=== PATIENT | female | born 1980 | race Caucasian/White ===

== ENCOUNTER 2016-12-20 19:47 | Emergency (ER) | payer MEDICAID ==
[~2016-12-20] VITALS: Ht 160 cm; Wt 54.4 kg
[~2016-12-20 19:47] MED LIST: BENADRYL50 MG PO; FERROUS SULFAT325 M4 PO
[2016-12-20 19:49] VITALS: BP 122/86
--- NOTE | 2016-12-20 22:26 | NUR ---
PATIENT TO BED 7.
--- NOTE | 2016-12-20 22:40 | NUR ---
36Y/F PATIENT PRESENTS TO ER WITH C/O HEADACHE [id number]. PT STATES SHE WOKE UP AT 1700 TODAY WITH CONFUSION WITH EPISODE OF FORGETFULLNESS. TOOK TYLENOL AT 1300. NO MED HX. DENIES N/V/D; SKIN IS PINK/WARM/DRY; AAOX4 WITH EVEN AND STEADY GAIT AT THIS TIME; LUNGS CLEAR BL; HR EVEN AND REGULAR; PT DENIES ANY FEVER, CP, SOB, OR COUGH AT THIS TIME;C/O HEADACHE, PATIENT STATES PAIN OF 8/10 AT THIS TIME; VSS; PATIENT POSITIONED FOR COMFORT; HOB ELEVATED; BEDRAILS UP X2; BED DOWN. ER MD MADE AWARE OF PT STATUS.
--- NOTE | 2016-12-20 23:28 | NUR ---
Patient being evaluated by physician at bedside.
[2016-12-20] MEDS ORDERED: NACL 0.9% 1,000 ML IV ONE (23:34)
[2016-12-20] MEDS ORDERED: diphenhydrAMINE 50 MG/ML VIAL IVP ONE (23:35)
[2016-12-20] MEDS ORDERED: METOCLOPRAMIDE 10 MG/2 ML INJ VIAL IVP ONE (23:35)
[2016-12-21 00:58] VITALS: BP 115/80
--- NOTE | 2016-12-21 00:58 | NUR ---
Patient discharged with v/s stable. Written and verbal after care instructions given and explained. Patient alert, oriented and verbalized understanding of instructions. Ambulatory with steady gait*. All questions addressed prior to discharge. ID band removed. Patient advised to follow up with PMD. Rx of NORCO given. Patient educated on indication of medication including possible reaction and side effects. Opportunity to ask questions provided and answered.
[2017-03-19] MEDS ORDERED: ATORVASTATIN CA20 MG PO (12:43)
[2017-03-19] MEDS ORDERED: PHARMASSURE VI500 MG PO (12:43)
[2017-03-19] MEDS ORDERED: COLACE100 M1 PO (12:43)
[2017-03-19] MEDS ORDERED: FERROUS GLUCON324 M1 PO (12:43)
[2017-03-19] MEDS ORDERED: NORCO 325 MG-51 TAB PO (12:45)
[2017-03-19] MEDS ORDERED: MOTRIN600 MG PO (13:04)
[2017-04-20] MEDS ORDERED: COLACE100 M1 PO (15:40)
[2017-04-20] MEDS ORDERED: NORCO 325 MG-51 TAB PO (15:40)
[2017-04-20] MEDS ORDERED: FERROUS SULFAT325 MG PO (15:41)
[2017-04-30] MEDS ORDERED: NORCO 325 MG-51 TAB PO (14:42)
== END 2016-12-21 00:58 | disposition home or self-care (01) ==
LOC: MED 19:51
DX: R51 Headache (principal); Z88.6 Allergy status to analgesic agent
CPT/HCPCS: 70450; 81002; 81025; 96361; 96374; 96375; 99284; J1200; J2765; J7030

== ENCOUNTER 2017-02-14 13:06 | Emergency (ER) | payer MEDICAID ==
[~2017-02-14] VITALS: Ht 160 cm; Wt 59.0 kg
[~2017-02-14 13:06] MED LIST changes: +BEN50 PO; -BENADRYL50 MG PO; -FERROUS SULFAT325 M4 PO
[2017-02-14 13:13] VITALS: BP 102/77
--- NOTE | 2017-02-14 15:38 | NUR ---
Patient ambulated to bed 6. RN evaluating patient at bedside.
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
[2017-02-14] MEDS ORDERED: MORPHINE SULFATE 4 MG/ML SYR IM ONE (16:05)
--- NOTE | 2017-02-14 16:25 | NUR ---
PT SITTING ON BED;NO ACUTE DISTRESS NOTED AT THIS TIME;WILL CONTINUE TO MONITOR PT.
--- NOTE | 2017-02-14 17:04 | NUR ---
Patient discharged with v/s stable. Written and verbal after care instructions given and explained. Patient alert, oriented and verbalized understanding of instructions. Ambulatory with to car. All questions addressed prior to discharge. ID band removed. Patient advised to follow up with PMD. Rx of TRAMADOL given. Patient educated on indication of medication including possible reaction and side effects. Opportunity to ask questions provided and answered.
[2017-02-14 17:06] VITALS: BP 106/77
== END 2017-02-14 17:04 | disposition home or self-care (01) ==
LOC: MED 13:06
DX: S93.402A Sprain of unspecified ligament of left ankle, initial encounter (principal); S90.32XA Contusion of left foot, initial encounter; V49.3XXA Car occupant (driver) (passenger) injured in unspecified nontraffic accident, initial encounter; Y93.89 Activity, other specified; Y92.89 Other specified places as the place of occurrence of the external cause; Y99.8 Other external cause status; Z88.6 Allergy status to analgesic agent
CPT/HCPCS: 73610; 73630; 96372; 99284; J2270

== ENCOUNTER 2017-02-16 14:27 | Emergency (ER) | payer MEDICAID ==
[~2017-02-16] VITALS: Ht 160 cm; Wt 59.0 kg
[~2017-02-16 14:27] MED LIST changes: -BEN50 PO; +BENADRYL50 MG PO; +FERROUS SULFAT325 M4 PO
[2017-02-16 15:00] VITALS: BP 127/92
--- NOTE | 2017-02-16 18:03 | NUR ---
Patient placed on OF3 Addendum: 02/16/17 at 1804 by PEREZ Amendment undone in ED - 02/16/17 at 1804 by PEREZ Patient being evaluated by physician at bedside.
--- NOTE | 2017-02-16 18:05 | NUR ---
Patient being evaluated by physician.
[2017-02-16] MEDS ORDERED: oxyCODONE/APAP 5/325 MG 1 TAB TAB PO ONE (18:10)
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
--- NOTE | 2017-02-16 19:15 | NUR ---
GOT REPORT FROM RYLEE
--- NOTE | 2017-02-16 20:32 | NUR ---
PT TAKEN TO CT
--- NOTE | 2017-02-16 20:43 | NUR ---
PT RETURN FROM CT
--- NOTE | 2017-02-16 22:00 | NUR ---
Dr. Watt evaluating patient at bedside.
--- NOTE | 2017-02-16 22:30 | NUR ---
Patient discharged with v/s stable. Written and verbal after care instructions given and explained. Patient alert, oriented and verbalized understanding of instructions. Ambulatory with steady gait. All questions addressed prior to discharge. ID band removed. Patient advised to follow up with PMD. Rx of NORCO 5/325 MG given. Patient educated on indication of medication including possible reaction and side effects. Opportunity to ask questions provided and answered.
[2017-02-16 22:38] VITALS: BP 115/81
[2017-03-19] MEDS ORDERED: COLACE100 M1 PO (12:43)
[2017-03-19] MEDS ORDERED: FERROUS GLUCON324 M1 PO (12:43)
[2017-03-19] MEDS ORDERED: PHARMASSURE VI500 MG PO (12:43)
[2017-03-19] MEDS ORDERED: ATORVASTATIN CA20 MG PO (12:43)
[2017-03-19] MEDS ORDERED: NORCO 325 MG-51 TAB PO (12:45)
[2017-03-19] MEDS ORDERED: MOTRIN600 MG PO (13:04)
[2017-04-20] MEDS ORDERED: COLACE100 M1 PO (15:40)
[2017-04-20] MEDS ORDERED: NORCO 325 MG-51 TAB PO (15:40)
[2017-04-20] MEDS ORDERED: FERROUS SULFAT325 MG PO (15:41)
[2017-04-30] MEDS ORDERED: NORCO 325 MG-51 TAB PO (14:42)
== END 2017-02-16 22:30 | disposition home or self-care (01) ==
LOC: MED 14:27
DX: S90.32XA Contusion of left foot, initial encounter (principal); Z88.6 Allergy status to analgesic agent; V49.9XXA Car occupant (driver) (passenger) injured in unspecified traffic accident, initial encounter; Y93.89 Activity, other specified; Y92.89 Other specified places as the place of occurrence of the external cause; Y99.8 Other external cause status

== ENCOUNTER 2017-03-17 13:58 | Inpatient (IN) | payer MEDICAID ==
[~2017-03-17] VITALS: Ht 160 cm; Wt 52.6 kg
[~2017-03-17 13:58] MED LIST changes: +BEN50 PO; -BENADRYL50 MG PO; -FERROUS SULFAT325 M4 PO
[2017-03-17 15:00] VITALS: BP 108/74
[2017-03-17] MEDS ORDERED: ONDANSETRON 4 MG ODT PO ONE (15:20)
--- NOTE | 2017-03-17 15:22 | NUR ---
DR JEFFERS ASSESSING AAO PT AT BEDSIDE
--- NOTE | 2017-03-17 15:24 | NUR ---
PT PRESENTS TO ER W/C/O N/V X4 DAYS. PT DENIES ANY OTHER MEDICAL HX. . DENIES DIARRHEA; SKIN IS PINK/WARM/DRY; AAOX4 WITH EVEN AND STEADY GAIT; LUNGS CLEAR BL; HR EVEN AND REGULAR; PT DENIES ANY FEVER, CP, SOB, OR COUGH AT THIS TIME; PATIENT STATES ABDOMINAL PAIN OF 9/10 AT THIS TIME; VSS; PATIENT POSITIONED FOR COMFORT; HOB ELEVATED; BEDRAILS UP X2; BED DOWN. ER MD MADE AWARE OF PT STATUS.
[2017-03-17] MEDS ORDERED: ONDANSETRON 4 MG/2 ML VIAL IVP ONE (15:25)
[2017-03-17] MEDS ORDERED: NACL 0.9% 1,000 ML IV ONE ×2 (15:25→16:00)
[2017-03-17] MEDS ORDERED: ACETAMINOPHEN EXTRA STRENGTH 500 MG TAB PO ONE (15:25)
[2017-03-17 15:31] LABS: EOSINOPHILS # (AUTO) 0.3 K/uL (0-0.4); EOSINOPHILS % (AUTO) 6.1 % (0.0-4.0); HEMATOCRIT 29.6 % (36-48); HEMOGLOBIN 8.7 g/dL (12.0-16.0); LYMPHOCYTES # (AUTO) 2.6 K/uL (2.5-16.5); LYMPHOCYTES % (AUTO) 51.1 % (20.5-51.1); MEAN CORPUSCULAR HEMOGLOBIN 20 pg (27-31); MEAN CORPUSCULAR HGB CONC 29 g/dL (33-37); MEAN CORPUSCULAR VOLUME 66 fL (80-94); MONOCYTES # (AUTO) 0.3 K/uL (0.8-1.0); MONOCYTES % (AUTO) 6.4 % (1.7-9.3); NEUTROPHILS # (AUTO) 1.8 K/uL (1.8-7.7); NEUTROPHILS % (AUTO) 36.4 % (42.2-75.2); PLATELET COUNT (AUTO) 252 K/uL (140-450); RED BLOOD CELL COUNT(AUTO) 4.46 MIL/uL (4.20-5.40); RED CELL DISTRIBUTION WIDTH 22.2 % (11.6-13.7)
[2017-03-17 15:39] LABS: ANION GAP 14.6 (8-16); CALCIUM 9.3 mg/dL (8.5-10.1); CARBON DIOXIDE 28.8 mmol/L (21-32); CREATININE 0.6 mg/dL (0.6-1.3); POTASSIUM 3.4 mmol/L (3.5-5.1)
[2017-03-17 15:44] LABS: ALBUMIN 4.4 g/dL (3.4-5.0); TOTAL BILIRUBIN 0.7 mg/dL (0.0-1.0); TOTAL PROTEIN, SERUM 9.3 g/dL (6.4-8.2)
[2017-03-17] MEDS ORDERED: HYDROmorphone 1 MG/ML AMP IVP ONE (16:00)
[2017-03-17] MEDS ORDERED: ACETAMINOPHEN 325 MG TAB PO PRN (17:30)
[2017-03-17] MEDS ORDERED: ONDANSETRON 4 MG/2 ML VIAL IVP PRN (17:30)
[2017-03-17] MEDS ORDERED: LABETALOL 100 MG/20 ML VIAL IVP ONE (17:45)
--- NOTE | 2017-03-17 17:48 | NUR ---
ATTEMPTED TO GIVE A REPORT NO RN AVAILABLE, WILL CALL IN 10 MINUTES
--- NOTE | 2017-03-17 17:55 | NUR ---
Patient will be admitted to care of DR RODRIGES. Admited to TELE. Will go to room 124A. Belongings list completed. Report to LASHONDA ABEBE.
--- NOTE | 2017-03-17 18:05 | NUR ---
PT TAKEN OFF THE UNIT TO CT OF THE ABDOMEN WITH CONTRAST VIA GURNEY BY DALE WELLS
[2017-03-17 18:45] VITALS: BP 120/86
[2017-03-17] MEDS: NACL 0.9% 1,000 ML IV SCH ×2 (18:45→23:04)
--- NOTE | 2017-03-17 18:45 | NUR ---
PATIENT ADMITTED TO THE UNIT FROM ER. PATIENT AWAKE, ALERT, ORIENTED AND AMBULATORY. NO S/S OF DISTRESS NOTED. PATIENT C/O 9/10 ABD PAIN. SKIN IS INTACT. IV LINE NOTED TO THE RIGHT AC SL. PATIENT PLACED ON TELE MONITORING. BED LOWERED WITH CALL LIGHT WITHIN REACH. WILL CONTINUE TO MONITOR
[2017-03-17 18:50] LABS: CHOL/HDL RATIO 1.9 (1-4.5); FREE T4 (FREE THYROXINE) 1.27 ng/dL (0.76-1.46); MAGNESIUM 2.3 mg/dL (1.8-2.4); PHOSPHORUS 4.1 mg/dL (2.5-4.9); THYROID STIMULATING HORMONE 0.81 uIU/mL (0.34-3.76)
[2017-03-17 18:52] LABS: INR 1.1 (0.8-1.2); PARTIAL THROMBOPLASTIN TIME 26.1 secs (22-35.6); PROTHROMBIN TIME 10.2 secs (10.8-13.4)
[2017-03-17] MEDS: HYDROcodone/APAP 7.5/325 MG 1 TAB PO PRN (19:26)
--- NOTE | 2017-03-17 19:32 | NUR ---
PATIENT REPORT GIVEN AT BEDSIDE. PATIENT ENDORSED IN STABLE CONDITION
--- NOTE | 2017-03-17 19:33 | NUR ---
RECEIVED REPORT FROM DAY RN FOR CONTINUITY OF CARE. PATIENT IS A&OX4, DISCUSSED PLAN OF CARE WITH PATIENT AND AT BEDSIDE, VERBALIZED UNDERSTANDING. SHIFT ASSESSMENT DONE, VS TAKEN, STABLE AT THIS TIME. PATIENT PREVIOUSLY MEDICATED FOR PAIN. NO S/S OF RESPIRATORY DISTRESS NOTED ON ROOM AIR. IV TO RT AC 20 GAUGE PATENT AND INFUSING FLUIDS WELL. SKIN INTACT. WRISTBANDS APPLIED AND PT ORIENTED TO ROOM. SAFETY PRECAUTIONS ENFORCED. CALL LIGHT WITHIN REACH. NPO ENFORCED TO PT, VERBALIZED UNDERSTANDING.
[2017-03-17 20:00] VITALS: BP 104/71
[2017-03-17] MEDS: DOCUSATE SODIUM 100 MG GELCAP PO SCH (20:02)
--- NOTE | 2017-03-17 20:02 | NUR ---
HELD COLACE PER PT HAVING DIARRHEA. SPOKE TO DR. BOLTON FOR IV PAIN MEDICATION DUE TO NAUSEA, WILL FOLLOW OUT ORDERS GIVEN. PT RESTING IN BED AT THIS TIME. CALL LIGHT WITHIN REACH.
[2017-03-17] MEDS ORDERED: MORPHINE SULFATE 2 MG/ML SYR IVP PRN (20:25)
[2017-03-17] MEDS: MORPHINE SULFATE 4 MG/ML SYR IVP PRN (22:58)
--- NOTE | 2017-03-17 22:58 | NUR ---
PATIENT AMBULATED TO RESTROOM, VOIDED. PT C/O ABDOMINAL PAIN, MEDICATED PER MD ORDER. VS STABLE. CALL LIGHT IN REACH.
[2017-03-18] VITALS: BP 100/54
--- NOTE | 2017-03-18 00:30 | NUR ---
PATIENT NOW SLEEPING AT THIS TIME. NO S/S OF DISTRESS OR DISCOMFORT NOTED. WILL CONTINUE TO MONITOR.
--- NOTE | 2017-03-18 01:52 | NUR ---
PT IS SLEEPING. NO S/S OF DISTRESS OR DISCOMFORT NOTED. WILL CONTINUE TO MONITOR.
[2017-03-18] MEDS: HYDROcodone/APAP 7.5/325 MG 1 TAB PO PRN ×5 (02:39→22:29)
--- NOTE | 2017-03-18 03:42 | NUR ---
VS TAKEN, STABLE. PT RESTING IN BED NO S/S OF DISTRESS OR DISCOMFORT NOTED. CALL LIGHT WITHIN REACH.
[2017-03-18] MEDS: NACL 0.9% 1,000 ML IV SCH (03:50)
[2017-03-18 04:00] VITALS: BP 107/65
[2017-03-18] MEDS: MORPHINE SULFATE 4 MG/ML SYR IVP PRN (05:24)
--- NOTE | 2017-03-18 05:24 | NUR ---
PT C/O ABDOMINAL PAIN, MEDICATED PER MD ORDER. VITAL SIGNS STABLE. CALL LIGHT WITHIN REACH.
[2017-03-18 07:14] LABS: HEMATOCRIT 22.9 % (36-48); MAGNESIUM 1.7 mg/dL (1.8-2.4); MEAN CORPUSCULAR HEMOGLOBIN 20 pg (27-31); MEAN CORPUSCULAR HGB CONC 30 g/dL (33-37); MEAN CORPUSCULAR VOLUME 67 fL (80-94); PHOSPHORUS 3.7 mg/dL (2.5-4.9); PLATELET COUNT (AUTO) 206 K/uL (140-450); RED BLOOD CELL COUNT(AUTO) 3.44 MIL/uL (4.20-5.40); RED CELL DISTRIBUTION WIDTH 21.6 % (11.6-13.7); WHITE BLOOD COUNT (AUTO) 4.6 K/uL (4.8-10.8)
[2017-03-18 07:15] LABS: ANION GAP 14.9 (8-16); CALCIUM 7.6 mg/dL (8.5-10.1); CARBON DIOXIDE 23.3 mmol/L (21-32); CREATININE 0.5 mg/dL (0.6-1.3); POTASSIUM 3.2 mmol/L (3.5-5.1)
[2017-03-18 07:21] LABS: AMYLASE 55 U/L (25-115); LIPASE 436 U/L (73-393)
--- NOTE | 2017-03-18 07:25 | NUR ---
ENDORSED PATIENT TO DAY RN FOR CONTINUITY OF CARE, PATIENT IS IN STABLE CONDITION.
--- NOTE | 2017-03-18 07:26 | NUR ---
RECEIVED PT AWAKE AND LYING ON BED, AAOX4 WITH NO S/S OF DISTRESS, WITH IV ACCESS AT RIGHT AC INFUSING FLUIDS WELL. SKIN IS INTACT, DISCUSSED PLAN OF CARE, PT VERBALIZED UNDERSTANDING. CALL LIGHT WITHIN REACH, WILL CONTINUE TO MONITOR
[2017-03-18 07:44] LABS: HEMOGLOBIN 6.8 g/dL (12.0-16.0)
--- NOTE | 2017-03-18 07:52 | NUR ---
NOTIFIED DR RODRIGES RE: HGB. ZAPATA TO SEE PT
[2017-03-18 08:00] VITALS: BP 110/74
[2017-03-18] MEDS: PANTOPRAZOLE 40 MG INJ VIAL IVP SCH (08:30)
[2017-03-18] MEDS: DOCUSATE SODIUM 100 MG GELCAP PO SCH ×2 (08:32→20:45)
--- NOTE | 2017-03-18 08:48 | NUR ---
PATIENT HAS BEEN SCREENED AND CATEGORIZED HIGH NUTRITION RISK. PATIENT WILL BE SEEN WITHIN 1-2 DAYS OF ADMISSION. 03/18/17-03/19/[address]
[2017-03-18] MEDS ORDERED: ATORVASTATIN 20 MG TAB PO SCH (09:19)
[2017-03-18] MEDS ORDERED: MAGNESIUM OXIDE 400 MG TAB PO SCH (09:20)
[2017-03-18 09:41] LABS: BAND % (MANUAL) 6 % (0-8); LYMPHOCYTES % (MANUAL) 24 % (20-46); MONOCYTES % (MANUAL) 11 % (5-12); NEUTROPHILS % (MANUAL) 58 (43-65)
[2017-03-18 09:42] LABS: ANISOCYTOSIS 2+; EOSINOPHILS % (MANUAL) 1 % (0-4); PLATELET ESTIMATE ADEQUATE
--- NOTE | 2017-03-18 10:10 | NUR ---
PT LEFT UNIT FOR CT IN STABLE CONDITION
[2017-03-18 10:22] LABS: APPEARANCE,URINE CLOUDY (CLEAR); BILIRUBIN,URINE NEGATIVE (NEGATIVE); BLOOD, URINE 3+ (NEGATIVE); COLOR,URINE RED (YELLOW); LEUKOCYTE ESTERASE ,URINE NEGATIVE (NEGATIVE); NITRITE, URINE NEGATIVE (NEGATIVE); PROTEIN,URINE NEGATIVE (NEGATIVE); UGLUCOSE NEGATIVE (NEGATIVE); UROBILINOGEN,URINE 0.2 EU/dL (0.2 - 1)
[2017-03-18 10:30] LABS: AMPHETAMINE, URINE NEG. ng/ml (NEG <=1000); BARBITURATE, URINE NEG. ng/ml (NEG <=200); BENZODIAZEPINE, URINE NEG. ng/mL (NEG <=200); CANNABINOID, URINE NEG. ng/mL (NEG <=50); COCAINE, URINE NEG. ng/mL (NEG <=300); OPIATE, URINE NEG. ng/mL (NEG <=2000); PHENCYCLIDINE SCREEN,URINE NEG. ng/mL (NEG <=25)
[2017-03-18 10:36] LABS: BACTERIA,URINE 1+ /HPF (None Seen); RBC,URINE TOO NUMEROUS TO COUN /HPF (0-5); SQUAMOUS EPITHELIAL CELL,UR 0-3 (FEW) /LPF (0-3 (FEW)); WBC,URINE NONE SEEN /HPF (0-5)
--- NOTE | 2017-03-18 10:46 | NUR ---
PT BACK TO UNIT FROM CT IN STABLE CONDITION
[2017-03-18] MEDS ORDERED: POTASSIUM CHLORIDE 40 MEQ, LIDOCAINE 1% 25 MG in NACL 0.9% 250 ML IV SCH (11:00)
--- NOTE | 2017-03-18 11:29 | NUR ---
ROXANNE NOTE INITIAL REVIEW SENT TO [facility]/[place] FAX# [phone] ROXANNE HICKMAN PH# [phone]
--- NOTE | 2017-03-18 11:34 | NUR ---
03/18/17 RD INITIAL ASSESSMENT COMPLETED PLEASE REFER TO NUTRITION ASSESSMENT UNDER CARE ACTIVITY FOR ESTIMATED NUTRITIONAL NEEDS. 1. WHEN MEDICALLY FEASIBLE, INITIATE ORAL DIET TO START ON CLEAR LIQUID DIET AND ADVANCE TOLERATE TO REGULAR DIET 2. RD TO FOLLOW-UP 2-3 DAYS; HIGH RISK ELISE MOORE, STACIA
[2017-03-18 12:00] VITALS: BP 101/65
--- NOTE | 2017-03-18 12:01 | NUR ---
PT AWAKE SITTING ON BED WITH RELATIVE, NO SIGNS OF SYMPTOMS OF DISTRESS. ALL NEEDS ATTENDED, WILL CONTINUE TO MONITOR
[2017-03-18 12:46] LABS: HEMATOCRIT 25.7 % (36-48); HEMOGLOBIN 7.6 g/dL (12.0-16.0); MEAN CORPUSCULAR HEMOGLOBIN 20 pg (27-31); MEAN CORPUSCULAR HGB CONC 30 g/dL (33-37); MEAN CORPUSCULAR VOLUME 67 fL (80-94); PLATELET COUNT (AUTO) 244 K/uL (140-450); RED BLOOD CELL COUNT(AUTO) 3.83 MIL/uL (4.20-5.40); RED CELL DISTRIBUTION WIDTH 21.5 % (11.6-13.7); WHITE BLOOD COUNT (AUTO) 6.3 K/uL (4.8-10.8)
[2017-03-18 13:22] LABS: BAND % (MANUAL) 1 % (0-8); EOSINOPHILS % (MANUAL) 1 % (0-4); LYMPHOCYTES % (MANUAL) 16 % (20-46); MONOCYTES % (MANUAL) 6 % (5-12); NEUTROPHILS % (MANUAL) 76 (43-65)
[2017-03-18 13:23] LABS: HYPOCHROMASIA 2+; PLATELET ESTIMATE ADEQUATE
[2017-03-18 13:24] LABS: ANISOCYTOSIS 2+
[2017-03-18 13:25] LABS: OVALOCYTES 1+
--- NOTE | 2017-03-18 14:59 | NUR ---
PT AWAKE WATCHING TV, ALL NEEDS ATTENDED, WILL CONTINUE TO MONITOR.
[2017-03-18 16:00] VITALS: BP 116/75
--- NOTE | 2017-03-18 16:21 | NUR ---
PT SITTING ON BED WATCHING TV, NO COMPLAINTS AT THIS TIME. WILL CONTINUE TO MONITOR.
[2017-03-18] MEDS: ASCORBIC ACID 500 MG TAB PO SCH (17:23)
[2017-03-18] MEDS: FERROUS GLUCONATE 324 MG TAB PO SCH (17:23)
--- NOTE | 2017-03-18 18:22 | NUR ---
PT AWAKE, HAD SHOWER ASSISTED BY RELATIVE. NO COMPLAINTS OF PAIN. WILL CONTINUE TO MONITOR.
--- NOTE | 2017-03-18 19:25 | NUR ---
RECEIVED PT AWAKE ON BED WATCHING TV, DENIES ANY PAIN, NO N/V NOTED, VERBALIZED TOLERATING REGULAR DIET, VITAL SIGNS STABLE, IV HEPLOCK, PLAN OF CARE DISCUSSED, CALL LIGHT WITHIN REACH.
--- NOTE | 2017-03-18 19:26 | NUR ---
ENDORSED PT TO LASHONDA MOON IN STABLE CONDITION FOR CONTINUITY OF CARE
--- NOTE | 2017-03-18 20:00 | NUR ---
PT AMBULATED INDEPENDENTLY TO BR WITH STEADY GAIT.
--- NOTE | 2017-03-18 21:00 | NUR ---
PT REFUSED DUE PO COLACE, RISK AND BENEFITS EXPLAINED, PT VERBALIZED HAD 2 LOOSE BM TODAY, ALL NEEDS ATTENDED.
--- NOTE | 2017-03-18 23:55 | NUR ---
RECEIVED PT IN STABLE CONDITION FROM LASHONDA MOON FOR CONTINUITY OF CARE. AWAKE,ALERT AND ORIENTED X4. WITH NO C/O ANY PAIN AT THIS TIME. HL ON THE RT AC# 20. CALL LIGHT PLACED WITHIN EASY REACH. WILL CONTINUE TO MONITOR.
--- NOTE | 2017-03-18 23:55 | NUR ---
PT SLEEPING, NO SIGNS OF DISTRESS, REPORT GIVEN TO RN LUCIANA FOR CONTINUITY OF CARE.
[2017-03-19] VITALS: BP 107/67
--- NOTE | 2017-03-19 02:00 | NUR ---
MADE ROUNDS. ASLEEP. NO S/S OF ANY PAIN NOTED.
--- NOTE | 2017-03-19 03:30 | NUR ---
C/O PAIN . WILL MEDICATE ORDERED.
[2017-03-19] MEDS: HYDROcodone/APAP 7.5/325 MG 1 TAB PO PRN ×3 (03:31→11:23)
--- NOTE | 2017-03-19 06:00 | NUR ---
ASLEEP. NO S/S OF ANY PAIN NOTED.
[2017-03-19 06:28] LABS: FOLIC ACID 11.4 ng/mL (>3.0)
[2017-03-19 06:47] LABS: HEMATOCRIT 27.3 % (36-48); HEMOGLOBIN 8.1 g/dL (12.0-16.0); MEAN CORPUSCULAR HEMOGLOBIN 20 pg (27-31); MEAN CORPUSCULAR HGB CONC 30 g/dL (33-37); MEAN CORPUSCULAR VOLUME 66 fL (80-94); PLATELET COUNT (AUTO) 242 K/uL (140-450); RED BLOOD CELL COUNT(AUTO) 4.12 MIL/uL (4.20-5.40); RED CELL DISTRIBUTION WIDTH 21.4 % (11.6-13.7); WHITE BLOOD COUNT (AUTO) 6.4 K/uL (4.8-10.8)
--- NOTE | 2017-03-19 07:30 | NUR ---
ENDORSED PT IN STABLE CONDITION TO AM NURSE.
--- NOTE | 2017-03-19 07:31 | NUR ---
RECEIVED SBAR REPORT AT PT BEDSIDE BY NIGHT RN. PT RESTING IN BED. MEDICATED BY NIGHT RN. DENIES DISCOMFORT AT THIS TIME. IV SITE PATENT AND INTACT. AAOX4. AMBULATORY. NO S/S OF ACUTE DISTRESS NOTED. CALL LIGHT WITHIN REACH. BED IN LOWEST POSITION. WILL CONTINUE TO MONITOR.
[2017-03-19 07:39] LABS: MAGNESIUM 1.9 mg/dL (1.8-2.4); PHOSPHORUS 3.6 mg/dL (2.5-4.9)
[2017-03-19 07:40] LABS: ANION GAP 13.4 (8-16); CARBON DIOXIDE 28.5 mmol/L (21-32); POTASSIUM 3.9 mmol/L (3.5-5.1)
[2017-03-19 07:41] LABS: CALCIUM 9.6 mg/dL (8.5-10.1); CREATININE 0.6 mg/dL (0.6-1.3)
[2017-03-19 07:55] LABS: ANISOCYTOSIS 1+; EOSINOPHILS % (MANUAL) 3 % (0-4); HYPOCHROMASIA 1+; LYMPHOCYTES % (MANUAL) 31 % (20-46); MONOCYTES % (MANUAL) 8 % (5-12); NEUTROPHILS % (MANUAL) 58 (43-65); POIKILOCYTOSIS 1+
[2017-03-19 08:00] VITALS: BP 110/77
[2017-03-19] MEDS ORDERED: ATORVASTATIN 20 MG TAB PO SCH (09:00)
[2017-03-19] MEDS: DOCUSATE SODIUM 100 MG GELCAP PO SCH (09:00)
--- NOTE | 2017-03-19 09:00 | NUR ---
MD ROUNDED WITH PATIENT. NO NEW ORDERS.
[2017-03-19] MEDS: ASCORBIC ACID 500 MG TAB PO SCH (09:32)
[2017-03-19] MEDS: FERROUS GLUCONATE 324 MG TAB PO SCH (09:32)
[2017-03-19] MEDS: PANTOPRAZOLE 40 MG INJ VIAL IVP SCH (09:33)
--- NOTE | 2017-03-19 10:16 | NUR ---
CM NOTE CONCURRENT REVIEW SENT TO [facility]/[place] FAX# [phone] ROXANNE HICKMAN PH# [phone]
[2017-03-19] MEDS ORDERED: ASCO-166 PO (12:43)
[2017-03-19] MEDS ORDERED: ATOR20TA40 PO (12:43)
[2017-03-19] MEDS ORDERED: FERR324T11 PO (12:43)
[2017-03-19] MEDS ORDERED: DOCU-67 PO (12:43)
[2017-03-19] MEDS ORDERED: ACET-2869 PO (12:45)
[2017-03-19] MEDS ORDERED: IBUP-2213 PO (13:04)
--- NOTE | 2017-03-19 14:00 | NUR ---
DISCHARGE INSTRUCTIONS GIVEN TO PATIENT AND SPOUSE. VERBALIZED UNDERSTANDING MEDICATION RECON WITH DISCHARGE TEACHING INCLUDING FOLLOW UP APPOINTMENT. PT AAOX4. AMBULATORY. DENIES DISCOMFORT. NO S/S OF ACUTE DISTRESS. IV REMOVED, CANULA INTACT. ID BANDS REMOVED. PT BELONGINGS CHECKED, ALL NEEDS MET. PT WHEELED TO FRONT LOBBY WITH SPOUSE.
== END 2017-03-19 14:00 | disposition home or self-care (01) | DRG 282 ==
LOC: MED 13:58 → MTU 17:32
PROVIDERS: ADMIT Family Medicine; ATTEND Family Medicine
DX: K85.90 Acute pancreatitis without necrosis or infection, unspecified (principal); K76.0 Fatty (change of) liver, not elsewhere classified; E78.5 Hyperlipidemia, unspecified; D50.9 Iron deficiency anemia, unspecified; F17.200 Nicotine dependence, unspecified, uncomplicated; E11.9 Type 2 diabetes mellitus without complications; K82.8 Other specified diseases of gallbladder; K86.1 Other chronic pancreatitis; Z88.6 Allergy status to analgesic agent; Z71.41 Alcohol abuse counseling and surveillance of alcoholic; Z72.89 Other problems related to lifestyle
CPT/HCPCS: 36415; 71010; 71270; 76705; 80048; 80053; 80305; 81001; 82140; 82150; 82607; 82728; 82746; 83036; 83540; 83690; 83735; 83880; 84100; 84439; 84443; 84484; 85025; 85045; 85610; 85730; 86886; 86900; 86901; 87081; 87086; 93005; 96361; 96374; 96375; 99285; C9113; J0696; J1170; J2001; J2270; J2405; J3480; J7030; J7060; Q0092; Q9967

== ENCOUNTER 2017-04-18 00:50 | Inpatient (IN) | payer MEDICAID ==
[~2017-04-18] VITALS: Ht 160 cm; Wt 54.4 kg
[~2017-04-18 00:50] MED LIST changes: +ACET-2869 PO; +ASCO-166 PO; +ATOR20TA40 PO; +DOCU-67 PO; +FERR324T11 PO; +IBUP-2213 PO
[2017-04-18 01:03] VITALS: BP 140/92
--- NOTE | 2017-04-18 01:09 | NUR ---
PT TAKEN TO BED 6
--- NOTE | 2017-04-18 01:18 | NUR ---
37 Y/O F W/C/O BACK PAIN, GENERAL WEAKNESS AND SOB X 2 DAYS. MED HX ANEMIA. ER NOTIFIED.
--- NOTE | 2017-04-18 01:19 | NUR ---
Dr. Zimmerman evaluating patient at bedside.
[2017-04-18] MEDS ORDERED: NACL 0.9% 1,000 ML IV ONE (01:20)
--- NOTE | 2017-04-18 01:54 | NUR ---
PT TAKEN TO ULTRASOUND
[2017-04-18 02:08] LABS: ANION GAP 16.8 (8-16); CALCIUM 8.3 mg/dL (8.5-10.1); CARBON DIOXIDE 26.7 mmol/L (21-32); CREATININE 0.5 mg/dL (0.6-1.3); POTASSIUM 3.5 mmol/L (3.5-5.1)
[2017-04-18 02:09] LABS: HEMOGLOBIN 8.3 g/dL (12.0-16.0); MEAN CORPUSCULAR HEMOGLOBIN 21 pg (27-31); MEAN CORPUSCULAR HGB CONC 30 g/dL (33-37); MEAN CORPUSCULAR VOLUME 70 fL (80-94); PLATELET COUNT (AUTO) 268 K/uL (140-450); RED BLOOD CELL COUNT(AUTO) 4.02 MIL/uL (4.20-5.40); RED CELL DISTRIBUTION WIDTH 22.5 % (11.6-13.7); WHITE BLOOD COUNT (AUTO) 3.6 K/uL (4.8-10.8)
[2017-04-18] MEDS ORDERED: MORPHINE SULFATE 4 MG/ML SYR IVP ONE (02:20)
[2017-04-18 02:21] LABS: EOSINOPHILS % (MANUAL) 3 % (0-4); HYPOCHROMASIA 2+; LYMPHOCYTES % (MANUAL) 48 % (20-46); MONOCYTES % (MANUAL) 7 % (5-12); POIKILOCYTOSIS 1+
[2017-04-18 02:22] LABS: ANISOCYTOSIS 2+; NEUTROPHILS % (MANUAL) 42 (43-65)
[2017-04-18 02:23] LABS: ALBUMIN 4.2 g/dL (3.4-5.0); THYROID STIMULATING HORMONE 1.29 uIU/mL (0.34-3.76); TOTAL BILIRUBIN 0.4 mg/dL (0.0-1.0); TOTAL PROTEIN, SERUM 8.8 g/dL (6.4-8.2)
[2017-04-18 02:59] LABS: RETICULOCYTE COUNT 1.3 % (0.5-1.5)
--- NOTE | 2017-04-18 03:50 | NUR ---
BLOOD CELLS VERIFIED WITH CHARGED NURSE AT BEDSIDE. TRASFUSED STARTED, FIRST SET OF VS TAKEN. NO S/S OF DISTRESS NOTED AT THE MOMENT.
--- NOTE | 2017-04-18 04:05 | NUR ---
PT STABLE, NO S/S OF REACTION TO BLOOD TRASFUSION NOTED AT THIS POINT WILL CONT TO MONITOR.
--- NOTE | 2017-04-18 04:20 | NUR ---
PT RESTING IN BED, NO S/S OF DISTRESS NOTED SO FAR. VSS, WILL CONT TO MONITOR.
--- NOTE | 2017-04-18 04:44 | NUR ---
PT RESTING IN BED, VS REMAIN STABLE. NO C/O PAIN, NO S/S OF ALLERGIC REACTION TO BLOOD TRASFUSION.
[2017-04-18] MEDS ORDERED: NACL 0.9% 1,000 ML IV SCH (04:54)
[2017-04-18] MEDS ORDERED: ONDANSETRON 4 MG/2 ML VIAL IVP PRN (04:55)
[2017-04-18] MEDS ORDERED: LORazepam 2 MG/ML VIAL IVP PRN (04:55)
[2017-04-18] MEDS ORDERED: MORPHINE SULFATE 2 MG/ML SYR IVP PRN (04:55)
[2017-04-18] MEDS ORDERED: ACETAMINOPHEN 325 MG TAB PO PRN (04:55)
--- NOTE | 2017-04-18 04:58 | NUR ---
UNABLE TO COLLECT URINE IN ER D/T PT UNABLE TO URINATE HERE. ER NOTIFIED.
[2017-04-18] MEDS ORDERED: ALBUTEROL SULFATE/IPRATROPIU 3 ML SOL IH PRN (05:00)
--- NOTE | 2017-04-18 05:00 | NUR ---
Patient will be admitted to care of [facility]. Admited to TELEMETRY. Will go to room 104 A. Belongings list completed. Report to LASHONDA ALVARES.
--- NOTE | 2017-04-18 05:11 | NUR ---
PT TRASFERRED TO TELEMETRY, ROOM 104 A. VSS, NO S/S OF DISTRESS NOTED DURING TRASFER.
--- NOTE | 2017-04-18 05:20 | NUR ---
ADMITTED 37 YEAR OLD FEMALE FROM ER. PT ARRIVED BY SARI. PT STALE. PT ON 02 2L NC. PT SATING AT 100% ROOM AIR, BUT SHE STATES SHE FEELS BETTER WITH THE OXYGEN ON. PT RECEIVING BLOOD TRANSFUSION AT THIS TIME, WHICH WAS STARTED IN ER. ORIENTED PT TO ROOM AND SURROUNDINGS AND USE OF CALL LIGHT. PT AMBULATED TO THE RESTROOM WITH STEADY GAIT, URINE AND MRSA NARES COLLECTED AND SENT TO LAB. EXPLAINED PLAN OF CARE TO PT AND SHE VERBALIZES UNDERSTANDING. FAMILY MEMBER AT BEDSIDE. CALL LIGHT WITHIN REACH.
[2017-04-18 05:40] LABS: APPEARANCE,URINE HAZY (CLEAR); BILIRUBIN,URINE NEGATIVE (NEGATIVE); BLOOD, URINE 1+ (NEGATIVE); COLOR,URINE YELLOW (YELLOW); LEUKOCYTE ESTERASE ,URINE NEGATIVE (NEGATIVE); NITRITE, URINE NEGATIVE (NEGATIVE); PH,URINE 5.5 (5.0-9.0); PROTEIN,URINE NEGATIVE (NEGATIVE); UGLUCOSE NEGATIVE (NEGATIVE); UROBILINOGEN,URINE 0.2 EU/dL (0.2 - 1)
[2017-04-18 05:41] LABS: CHOL/HDL RATIO 1.9 (1-4.5)
[2017-04-18 05:48] LABS: AMPHETAMINE, URINE NEG. ng/ml (NEG <=1000); BARBITURATE, URINE NEG. ng/ml (NEG <=200); BENZODIAZEPINE, URINE NEG. ng/mL (NEG <=200); CANNABINOID, URINE NEG. ng/mL (NEG <=50); COCAINE, URINE NEG. ng/mL (NEG <=300); OPIATE, URINE POS. ng/mL (NEG <=2000); PHENCYCLIDINE SCREEN,URINE NEG. ng/mL (NEG <=25)
[2017-04-18 05:49] LABS: RBC,URINE 0-5 (RARE) /HPF (0-5)
[2017-04-18 05:50] LABS: BACTERIA,URINE 2+ /HPF (None Seen); SQUAMOUS EPITHELIAL CELL,UR 4-10 (MOD) /LPF (0-3 (FEW))
--- NOTE | 2017-04-18 06:29 | NUR ---
PT COMPLAINING OF ABDOMINAL PAIN 03/11. VS STABLE WILL MEDICATE ORDERED.
[2017-04-18] MEDS: HYDROcodone/APAP 5/325 MG 1 TAB TAB PO PRN ×3 (06:32→22:07)
--- NOTE | 2017-04-18 06:55 | NUR ---
PATIENT HAS BEEN SCREENED AND CATEGORIZED LOW NUTRITION RISK. PATIENT WILL BE SEEN WITHIN 7 DAYS OF ADMISSION. 04/24/17 SEPIDEH YO MS, RDN
[2017-04-18] MEDS ORDERED: ALBUTEROL SULFATE/IPRATROPIU 3 ML SOL IH SCH (07:00)
--- NOTE | 2017-04-18 07:07 | NUR ---
FIRST UNIT OF BLOOD FINISHED. VS STABLE. PT DENIES ANY PAIN OR DISCOMFORT. WILL CONTINUE TO MONITOR PT. Addendum: 04/18/17 at 0824 by Madelin Wilkinson RN WRONG TIME ENTRY. CORRECT TIME 0655.
--- NOTE | 2017-04-18 07:25 | NUR ---
RECEIVED REPORT FROM NIGHT RN. PT RESTING IN BED. AAOX4. NO S/S OF ACUTE DISTRESS. PT DENIES PAIN AT THIS TIME. IV SITE PATENT AND INTACT. FRIEND AT BEDSIDE. CALL LIGHT WITHIN REACH. SAFETY MEASURES ENSURED. WILL CONTINUE TO MONITOR.
--- NOTE | 2017-04-18 07:25 | NUR ---
ENDORSED PLAN OF CARE TO DAY SHIFT NURSE, PT IN STABLE CONDITION.
[2017-04-18 08:09] VITALS: BP 104/71
[2017-04-18] MEDS ORDERED: diphenhydrAMINE 50 MG CAP PO SCH (09:00)
[2017-04-18] MEDS: ATORVASTATIN 20 MG TAB PO SCH (09:04)
[2017-04-18] MEDS: ASCORBIC ACID 500 MG TAB PO SCH ×2 (09:05→16:17)
[2017-04-18] MEDS: FERROUS GLUCONATE 324 MG TAB PO SCH ×2 (09:14→16:17)
--- NOTE | 2017-04-18 09:17 | NUR ---
PER DR. AWAD HOLD SECOND UNIT OF BLOOD. TO CANCEL ORDER.
[2017-04-18 12:00] VITALS: BP 101/64
[2017-04-18 12:10] LABS: HEMATOCRIT 29.2 % (36-48); HEMOGLOBIN 8.8 g/dL (12.0-16.0); MEAN CORPUSCULAR HEMOGLOBIN 22 pg (27-31); MEAN CORPUSCULAR HGB CONC 30 g/dL (33-37); MEAN CORPUSCULAR VOLUME 72 fL (80-94); PLATELET COUNT (AUTO) 248 K/uL (140-450); RED BLOOD CELL COUNT(AUTO) 4.05 MIL/uL (4.20-5.40); RED CELL DISTRIBUTION WIDTH 22.7 % (11.6-13.7)
--- NOTE | 2017-04-18 12:20 | NUR ---
PT RESTING IN BED. NO S/S OF ACUTE DISTRESS. PARTNER AT BEDSIDE. WILL CONTINUE TO MONITOR.
[2017-04-18 12:33] LABS: BAND % (MANUAL) 5 % (0-8); EOSINOPHILS % (MANUAL) 1 % (0-4); LYMPHOCYTES % (MANUAL) 40 % (20-46); MONOCYTES % (MANUAL) 10 % (5-12); NEUTROPHILS % (MANUAL) 44 (43-65)
--- NOTE | 2017-04-18 14:07 | NUR ---
PT RESTING IN BED. NO S/S OF ACUTE DISTRESS. PT DENIES PAIN. CALL LIGHT WITHIN REACH. SAFETY MEASURES ENSURED. WILL CONTINUE TO MONITOR.
[2017-04-18 16:00] VITALS: BP 104/68
--- NOTE | 2017-04-18 16:06 | NUR ---
PT SLEEPING IN BED. NO S/S OF ACUTE DISTRESS. CALL LIGHT WITHIN REACH. SAFETY MEASURES ENSURED. WILL CONTINUE TO MONITOR.
--- NOTE | 2017-04-18 19:30 | NUR ---
RECEIVED FROM AM RN IN RESTROOM AND AMBULATED BACK TO BED BY HERSELF. INDEPENDENT. ABLE TO VERBALIZE NEEDS WELL. NO SOB. TELEMETRY MONITORING. CARE PLANS FOR THE NIGHT DISCUSSED WITH HER AND CALL LIGHT AT BEDSIDE AT ALL TIMES. IVF SITE INTACT AND GOOD BLOOD RETURN.
--- NOTE | 2017-04-18 19:33 | NUR ---
ENDORSED PLAN OF CARE TO NIGHT RN. PT REMAINS STABLE.
[2017-04-18] MEDS: ZOLPIDEM 5 MG TAB PO PRN (22:07)
[2017-04-18 22:12] VITALS: BP 124/86
--- NOTE | 2017-04-18 22:21 | NUR ---
PT. REQUESTED FOR PAIN RELIEVER AND SLEEPING PILL. ABLE TO VERBALIZE NEEDS WELL. NO SOB. A/O X 4. CLEAR SPEECH. TELEMETRY MONITORING. HR 78.
--- NOTE | 2017-04-19 | NUR ---
PT. SLEEPING AT THIS TIME. NO RESTLESSNESS NOTED. AT BEDSIDE WATCHING OVER HER. TELEMETRY MONITORING. CALL LIGHT WITH IN REACH AND ABLE TO VERBALIZE NEEDS WELL.
[2017-04-19 03:37] VITALS: BP_SYST 108; BP_SYST 111; BP_DIAS 70
--- NOTE | 2017-04-19 03:48 | NUR ---
PT. SLEEPING. WAKES UP EASILY WHEN TOUCHED. NO PAIN AT THIS TIME. NO RESTLESSNESS. TELEMETRY MONITORING.
--- NOTE | 2017-04-19 05:40 | NUR ---
NO RESTLESSNESS. USES CALL LIGHT FOR HELP. TELEMETRY MONITORING. NO SOB. 98 % 02 SAT ON ROOM AIR. INDEPENDENT.
[2017-04-19 06:06] LABS: HEMATOCRIT 30.5 % (36-48); HEMOGLOBIN 9.1 g/dL (12.0-16.0); MEAN CORPUSCULAR HEMOGLOBIN 22 pg (27-31); MEAN CORPUSCULAR HGB CONC 30 g/dL (33-37); MEAN CORPUSCULAR VOLUME 72 fL (80-94); PLATELET COUNT (AUTO) 247 K/uL (140-450); RED BLOOD CELL COUNT(AUTO) 4.25 MIL/uL (4.20-5.40); RED CELL DISTRIBUTION WIDTH 22.9 % (11.6-13.7); WHITE BLOOD COUNT (AUTO) 5.2 K/uL (4.8-10.8)
[2017-04-19 06:35] LABS: ANION GAP 13.8 (8-16); CALCIUM 8.8 mg/dL (8.5-10.1); CREATININE 0.4 mg/dL (0.6-1.3); PHOSPHORUS 4.1 mg/dL (2.5-4.9); POTASSIUM 3.8 mmol/L (3.5-5.1)
--- NOTE | 2017-04-19 06:49 | NUR ---
MD SMITH IN HERE TO SEE PT. WITH NO NEW ORDERS GIVEN.
[2017-04-19 07:00] LABS: BAND % (MANUAL) 8 % (0-8); EOSINOPHILS % (MANUAL) 3 % (0-4); LYMPHOCYTES % (MANUAL) 28 % (20-46); MONOCYTES % (MANUAL) 11 % (5-12); NEUTROPHILS % (MANUAL) 50 (43-65)
[2017-04-19 07:01] LABS: ANISOCYTOSIS 1+; HYPOCHROMASIA 1+; OVALOCYTES 1+; POIKILOCYTOSIS 1+; TARGET CELLS 1+; TEAR DROP CELLS 1+
--- NOTE | 2017-04-19 07:20 | NUR ---
RECEIVED REPORT FROM VENDOR REPRESENTATIVES NURSE. RECEIVED PATIENT IN BED, AAOX4. AMBULATES FREELY. NO SOB AT THIS TIME, NO S/S OF ACUTE DISTRESS. IVF SITE PATENT AND INTACT. ON TELEMETRY MONITORING. CALL LIGHT WITHIN REACH. WILL CONTINUE TO MONITOR FOR ANY CHANGES.
--- NOTE | 2017-04-19 07:30 | NUR ---
DR. Isaiah CALDWELL SAW PT. IN HIS PERSPECTIVE PT NO LONGER ANEMIC. NO LONGER HAS ACTIVE BLEEDING. OKAY TO BE DISCHARGED IN SENIOR PRODUCT ENGINEER PERSPECTIVE. ORDERED REGULAR DIET AND DISCHARGE BY ONLINE TRADER ORDERS.
[2017-04-19 07:59] VITALS: BP 114/75
[2017-04-19] MEDS: ATORVASTATIN 20 MG TAB PO SCH (08:26)
[2017-04-19] MEDS: ASCORBIC ACID 500 MG TAB PO SCH ×2 (08:26→17:18)
[2017-04-19] MEDS: FERROUS GLUCONATE 324 MG TAB PO SCH ×2 (08:26→17:18)
--- NOTE | 2017-04-19 08:27 | NUR ---
PT. REQUESTED FOR PAIN RELIEVER. WILL CONTINUE TO MONITOR.
[2017-04-19] MEDS: HYDROcodone/APAP 5/325 MG 1 TAB TAB PO PRN ×4 (08:29→22:27)
--- NOTE | 2017-04-19 08:30 | NUR ---
ADMINISTERED MORNING MEDS INCLUDING PAIN MEDS. PT TOLERATED WELL. PT REQUESTED A SHOWER. WILL REQUEST ORDER FROM MD. WILL CONTINUE TO MONITOR PT.
--- NOTE | 2017-04-19 09:15 | NUR ---
ATTENDING MD STATED PT WILL NOT BE DISCHARGED DUE TO ELEVATED LIPASE. NEW DX OF PANCREATITIS. ORDERED NPO NOW AND CLEAR LIQUID FOR DINNER. SHOWER OKAY.
[2017-04-19 09:18] LABS: LACTATE DEHYDROGENASE 212 IU/L (119-226); T4 (THYROXINE) 5.3 ug/dL (4.5-12.0)
--- NOTE | 2017-04-19 11:05 | NUR ---
PT RESTING COMFORTABLY. NO COMPLAINTS AT THIS TIME. PARTNER AT BEDSIDE. WILL GIVE TOWELS AND SOAP FOR SHOWER. WILL CONTINUE TO MONITOR.
[2017-04-19 11:10] LABS: INR 1.1 (0.8-1.2)
--- NOTE | 2017-04-19 11:40 | NUR ---
PT TOOK SHOWER. CHANGED ALL LINENS. ATTACHED THE TELE LEADS. PT RESTING COMFORTABLY. WILL CONTINUE TO MONITOR PT.
[2017-04-19 12:00] VITALS: BP 112/79
--- NOTE | 2017-04-19 13:06 | NUR ---
PT. REQUESTED FOR PAIN RELIEVER. GAVE NORCO PRN. WILL CONTINUE TO MONITOR PT. CALL LIGHT WITHIN REACH.
--- NOTE | 2017-04-19 15:30 | NUR ---
PT RESTING IN BED WATCHING TV AND ON CELL PHONE. NO SIGNS OF DISTRESS. NO COMPLAINTS AT THIS TIME. WILL CONTINUE TO MONITOR PT.
[2017-04-19 16:00] VITALS: BP 114/70
--- NOTE | 2017-04-19 17:20 | NUR ---
PT COMPLAINED OF PAIN. ADMINISTERED PAIN MEDS. PT TOLERATED WELL. WILL CONTINUE TO MONITOR.
[2017-04-19] MEDS: NACL 0.9% 1,000 ML IV SCH ×2 (17:23→22:28)
--- NOTE | 2017-04-19 18:00 | NUR ---
PT ATE HER CLEAR LIQUID DIET. TOLERATED WELL. PARTNER AT BEDSIDE. NO COMPLAINTS AT THIS TIME. WILL CONTINUE TO MONITOR PT.
--- NOTE | 2017-04-19 19:23 | NUR ---
ENDORSED PT TO DROP FORGER HELPER NURSE AT BEDSIDE FOR CONTINUITY OF CARE. PT IN STABLE CONDITION.
--- NOTE | 2017-04-19 19:24 | NUR ---
RECEIVED FROM AM RN IN BED AWAKE AND ALERT. NO SOB. DENIES PAIN AT THIS TIME. TELEMETRY MONITORING. CARE PLABNS FOR THE NIGHT DISCUSSED WITH PT. CALL LIGHT WITH IN REACH. PT. INDEPENDENT. ROM X 4.
[2017-04-19 20:00] VITALS: BP 112/80
[2017-04-19] MEDS ORDERED: INSULIN LISPRO SLIDING SCALE 100 UNITS/ML VIAL SUBQ PRN (21:30)
[2017-04-19] MEDS: ZOLPIDEM 5 MG TAB PO PRN (22:27)
[2017-04-19 23:46] VITALS: BP 107/75
--- NOTE | 2017-04-20 00:05 | NUR ---
PT. STILL AWAKE AT THIS TIME AND WATCHING TV. A/O X 4. CLEAR SPEECH AND ABLE TO USE CALL LIGHT FOR HELP OR IF IN PAIN.
--- NOTE | 2017-04-20 03:45 | NUR ---
SLEEPING WELL. NO RESTLESSNESS AND NO SOB.
[2017-04-20 04:00] VITALS: BP 93/54
[2017-04-20] MEDS: NACL 0.9% 1,000 ML IV SCH (05:15)
[2017-04-20] MEDS: BLOOD GLUCOSE MONITORING 1 DEV DEV FS SCH ×2 (05:48→11:59)
[2017-04-20 05:53] LABS: HEMATOCRIT 29.9 % (36-48); MEAN CORPUSCULAR HEMOGLOBIN 22 pg (27-31); MEAN CORPUSCULAR HGB CONC 30 g/dL (33-37); MEAN CORPUSCULAR VOLUME 72 fL (80-94); PLATELET COUNT (AUTO) 241 K/uL (140-450); RED BLOOD CELL COUNT(AUTO) 4.14 MIL/uL (4.20-5.40); WHITE BLOOD COUNT (AUTO) 6.2 K/uL (4.8-10.8)
[2017-04-20 06:36] LABS: ANION GAP 12.8 (8-16); CALCIUM 8.8 mg/dL (8.5-10.1); CARBON DIOXIDE 26.1 mmol/L (21-32); CREATININE 0.4 mg/dL (0.6-1.3); POTASSIUM 3.9 mmol/L (3.5-5.1)
[2017-04-20 06:41] LABS: MAGNESIUM 2.1 mg/dL (1.8-2.4); PHOSPHORUS 3.7 mg/dL (2.5-4.9)
[2017-04-20 06:57] LABS: BAND % (MANUAL) 4 % (0-8); LYMPHOCYTES % (MANUAL) 22 % (20-46); MONOCYTES % (MANUAL) 17 % (5-12); NEUTROPHILS % (MANUAL) 52 (43-65)
[2017-04-20 06:58] LABS: EOSINOPHILS % (MANUAL) 5 % (0-4)
[2017-04-20 06:59] LABS: ANISOCYTOSIS 1+; HYPOCHROMASIA 1+; POIKILOCYTOSIS 1+
[2017-04-20 07:00] LABS: OVALOCYTES 1+; TARGET CELLS 1+
--- NOTE | 2017-04-20 07:22 | NUR ---
ENDORSED TO THE NEXT RN FOR CONTINUITY OF CARE. NO COMPLAINTS DONE. TELEMETRY MONITORING.
--- NOTE | 2017-04-20 07:23 | NUR ---
RECEIVED REPORT FROM THE ROLL WEIGHER NURSE AT BEDSIDE FOR CONTINUITY OF CARE. PT IS SLEEPING. I WILL BE BACK TO ASSESS PT. UPDATED THE BOARD.
--- NOTE | 2017-04-20 07:50 | NUR ---
WOKE UP PT. V/S WITHIN NORMAL RANGE. PT IS ALERT AND ORIENTED. I RE-INTRODUCED MYSELF. SHE C/O LOWER ABDOMINAL, CRAMPING PAIN 05/11. WILL MEDICATE ALONG WITH HER MORNING MEDS. PT ATE HER CLEAR LIQ BREAKFAST. TOLERATED WELL. WILL TALK TO MD ABOUT INCREASING DIET.
[2017-04-20 08:04] VITALS: BP 106/67
[2017-04-20] MEDS: ASCORBIC ACID 500 MG TAB PO SCH (08:15)
[2017-04-20] MEDS: FERROUS GLUCONATE 324 MG TAB PO SCH (08:15)
[2017-04-20] MEDS: ATORVASTATIN 20 MG TAB PO SCH (08:15)
[2017-04-20] MEDS: HYDROcodone/APAP 5/325 MG 1 TAB TAB PO PRN ×2 (08:16→12:21)
--- NOTE | 2017-04-20 08:20 | NUR ---
ADMINISTERED MORNING MEDS, INCLUDING PAIN MED. PAIN AT 6/10. PT TOLERATED WELL. WILL CONTINUE TO MONITOR PT.
--- NOTE | 2017-04-20 09:00 | NUR ---
SPOKE TO DR. RODRIGES, LET HIM KNOW ABOUT HER MENSTRUAL LIKE CRAMPS AND NOT UPPER ABDOMINAL PAIN. PT IS ALSO TOLERATING FOOD WELL. POSSIBLY UPGRADING DIET.
--- NOTE | 2017-04-20 11:00 | NUR ---
PT IS RESTING COMFORTABLY W/ PARTNER AT BEDSIDE. THEY ARE VISITING. WILL CONTINUE TO MONITOR PT.
[2017-04-20 12:00] VITALS: BP 106/76
--- NOTE | 2017-04-20 12:41 | NUR ---
SPOKE WITH MARYLOU FROM [facility] THIS IS HER PATIENT. INITIAL REVIEW FAXD TO [facility] [phone] PHONE MARYLOU [phone]
--- NOTE | 2017-04-20 14:00 | NUR ---
PT RESTING IN BED WITH PARTNER AT BEDSIDE. NO COMPLAINTS AT THIS TIME. WILL CONTINUE TO MONITOR PT.
--- NOTE | 2017-04-20 15:35 | NUR ---
DR DALTON CAME TO SEE PT. PT WANTS TO GO HOME. WILL WRITE HER A RX FOR PAIN, IRON, STOOL SOFTNER. WILL WAIT ORDERS FOR DISCHARGE.
[2017-04-20] MEDS ORDERED: DOCU-67 PO (15:40)
[2017-04-20] MEDS ORDERED: ACET-2869 PO (15:40)
[2017-04-20] MEDS ORDERED: FERR325E14 PO (15:41)
[2017-04-20 16:00] VITALS: BP 114/78
[2017-04-20 16:11] LABS: HEMOGLOBIN A1C 5.1 % (4.8-5.6)
--- NOTE | 2017-04-20 16:45 | NUR ---
WENT OVER THE D/C INFORMATION WITH PT AND PARTNER. ANSWERED ALL QUESTIONS. PT VERBALIZED UNDERSTANDING. REMOVED IV, CANNULA INTACT. NO BLEEDING NOTED. PT TOLERATED WELL. REMOVED ALL ARM BANDS. WILL GET DRESSED AND GATHER ALL PERSONAL BELONGINGS. WILL LET ME KNOW WHEN READY TO BE WHEELED OUT.
--- NOTE | 2017-04-20 17:10 | NUR ---
PT WHEELED OUT TO THE LOBBY BY TIERNEY. ALL PERSONAL BELONGINGS WITH PT. PT IN STABLE CONDITION. SIG OTHER GETTING THE CAR IN THE PARKING LOT.
[2017-04-21 06:26] LABS: FOLIC ACID 12.9 ng/mL (>3.0)
[2017-04-21 06:26] LABS: HEPATITIS A ANTIBODY IGM Negative (Negative); HEPATITIS A ANTIBODY TOTAL Negative (Negative); HEPATITIS B CORE AB TOTAL Negative (Negative); HEPATITIS B CORE, IGM Negative (Negative); HEPATITIS B SURFACE AB Non Reactive (.); HEPATITIS B SURFACE ANTIGEN Negative (Negative); HEPATITIS C VIRUS ANTIBODY <0.1 s/co ratio (0.0-0.9)
[2017-04-21 16:53] LABS: FERRITIN 14 ng/mL (15-150)
[2017-04-22 06:21] LABS: LD1 FRACTION 20 % (17-32); LD2 FRACTION 26 % (25-40); LD3 FRACTION 17 % (17-27); LD4 FRACTION 8 % (5-13)
== END 2017-04-20 17:10 | disposition home or self-care (01) | DRG 532 ==
LOC: MED 00:50 → MTU 04:54
PROVIDERS: ADMIT Family Medicine; ATTEND Family Medicine
PROC: 30233N1 Transfusion of Nonautologous Red Blood Cells into Peripheral Vein, Percutaneous Approach (ICD-10-PCS; principal; 2017-04-18)
DX: N92.0 Excessive and frequent menstruation with regular cycle (principal); K85.90 Acute pancreatitis without necrosis or infection, unspecified; K76.0 Fatty (change of) liver, not elsewhere classified; E83.51 Hypocalcemia; N93.8 Other specified abnormal uterine and vaginal bleeding; E78.5 Hyperlipidemia, unspecified; F17.210 Nicotine dependence, cigarettes, uncomplicated; D50.0 Iron deficiency anemia secondary to blood loss (chronic); Z88.6 Allergy status to analgesic agent; Z87.898 Personal history of other specified conditions
CPT/HCPCS: 36415; 76700; 76856; 80048; 80053; 80305; 81001; 82607; 82728; 82746; 82948; 83036; 83540; 83625; 83690; 83735; 84100; 84436; 84439; 84443; 84703; 85025; 85045; 85610; 86704; 86706; 86708; 86709; 86803; 86886; 86900; 86901; 86920; 87081; 87086; 87340; 96361; 96374; 99285; J2270; J7030; P9016; Q0092; Q0163

== ENCOUNTER 2017-05-07 22:55 | Emergency (ER) | payer MEDICAID ==
[~2017-05-07] VITALS: Ht 160 cm; Wt 52.7 kg
[~2017-05-07 22:55] MED LIST changes: -ATOR20TA40 PO; -BEN50 PO; -FERR324T11 PO; +FERR325E14 PO; -IBUP-2213 PO
[2017-05-07 22:59] VITALS: BP 128/87
[2017-05-07 23:57] LABS: APPEARANCE,URINE SL CLOUDY (CLEAR); BILIRUBIN,URINE NEGATIVE (NEGATIVE); BLOOD, URINE NEGATIVE (NEGATIVE); COLOR,URINE YELLOW (YELLOW); LEUKOCYTE ESTERASE ,URINE NEGATIVE (NEGATIVE); NITRITE, URINE NEGATIVE (NEGATIVE); PROTEIN,URINE TRACE (NEGATIVE); UGLUCOSE NEGATIVE (NEGATIVE); UROBILINOGEN,URINE 0.2 EU/dL (0.2 - 1)
[2017-05-08 00:02] LABS: HEMOGLOBIN 9.5 g/dL (12.0-16.0); MEAN CORPUSCULAR VOLUME 75 fL (80-94); RED BLOOD CELL COUNT(AUTO) 4.16 MIL/uL (4.20-5.40); WHITE BLOOD COUNT (AUTO) 4.4 K/uL (4.8-10.8)
[2017-05-08 00:03] LABS: MEAN CORPUSCULAR HEMOGLOBIN 23 pg (27-31); MEAN CORPUSCULAR HGB CONC 31 g/dL (33-37); PLATELET COUNT (AUTO) 318 K/uL (140-450); RED CELL DISTRIBUTION WIDTH 24.6 % (11.6-13.7)
[2017-05-08 00:04] LABS: BAND % (MANUAL) 6 % (0-8); EOSINOPHILS % (MANUAL) 6 % (0-4); LYMPHOCYTES % (MANUAL) 29 % (20-46); MONOCYTES % (MANUAL) 12 % (5-12); NEUTROPHILS % (MANUAL) 47 (43-65)
[2017-05-08 00:05] LABS: ALBUMIN 4.4 g/dL (3.4-5.0); ANION GAP 19.3 (8-16); CALCIUM 8.3 mg/dL (8.5-10.1); CARBON DIOXIDE 23.2 mmol/L (21-32); CREATININE 0.5 mg/dL (0.6-1.3); POTASSIUM 3.5 mmol/L (3.5-5.1); TOTAL BILIRUBIN 0.3 mg/dL (0.0-1.0); TOTAL PROTEIN, SERUM 8.9 g/dL (6.4-8.2)
[2017-05-08 00:15] LABS: BACTERIA,URINE 3+ /HPF (None Seen); RBC,URINE 0-5 (RARE) /HPF (0-5); SQUAMOUS EPITHELIAL CELL,UR 20-50 /LPF (0-3 (FEW)); WBC,URINE 0-5 (RARE) /HPF (0-5)
--- NOTE | 2017-05-08 01:52 | NUR ---
PT TAKEN TO BED 6
--- NOTE | 2017-05-08 01:52 | NUR ---
37Y F BIB FAMILY C/O LEFT FLANK RADIATING TO THE BACK PAIN X 1 MONTH. PT STATES SHE WAS ADMITTED HERE AT [facility] 1 MONTH AGO FOR PANCREATITIS AND SINCE DISCHARGE IS STILL HAVING PAIN.
--- NOTE | 2017-05-08 02:44 | NUR ---
Dr. White evaluating patient at bedside.
[2017-05-08] MEDS ORDERED: MORPHINE SULFATE 4 MG/ML SYR IM ONE (02:50)
[2017-05-08 03:04] VITALS: BP 122/75
--- NOTE | 2017-05-08 03:05 | NUR ---
Patient discharged with v/s stable. Written and verbal after care instructions given and explained. Patient alert, oriented and verbalized understanding of instructions. Ambulatory with steady gait. All questions addressed prior to discharge. ID band removed. Patient advised to follow up with PMD. Rx of [id number] [id number] PRN given. Patient educated on indication of medication including possible reaction and side effects. Opportunity to ask questions provided and answered.
== END 2017-05-08 03:05 | disposition home or self-care (01) ==
LOC: MED 22:55
DX: M54.5 Low back pain (principal); R10.9 Unspecified abdominal pain; Z88.6 Allergy status to analgesic agent; Z79.899 Other long term (current) drug therapy
CPT/HCPCS: 36415; 80053; 81001; 81025; 83690; 85025; 87086; 96372; 99284; J2270

== ENCOUNTER 2018-09-28 18:00 | Emergency (ER) | payer MEDICAID ==
[~2018-09-28] VITALS: Ht 160 cm; Wt 52.2 kg
[~2018-09-28 18:00] MED LIST changes: -ACET-2869 PO; -ASCO-166 PO; +ASCO500T93 PO; +DOCU-299 PO; -DOCU-67 PO; +HYDR-5122 PO
[2018-09-28 18:46] VITALS: BP 118/58
[2018-09-28] MEDS ORDERED: MORPHINE SULFATE 4 MG/ML SYR IM ONE (23:30)
[2018-09-29 00:15] VITALS: BP 119/56
== END 2018-09-29 00:16 | disposition home or self-care (01) ==
LOC: MED 18:00
DX: M25.561 Pain in right knee (principal); M25.562 Pain in left knee; F17.210 Nicotine dependence, cigarettes, uncomplicated; Z79.891 Long term (current) use of opiate analgesic; Z79.899 Other long term (current) drug therapy; Z88.6 Allergy status to analgesic agent
CPT/HCPCS: 73562; 96372; 99283; J2270

== ENCOUNTER 2019-12-12 09:39 | Emergency (ER) | payer MEDICAID ==
[~2019-12-12] VITALS: Ht 160 cm; Wt 62.1 kg
[2019-12-12 09:42] VITALS: BP 140/94
--- NOTE | 2019-12-12 09:45 | NUR ---
PT TO USE RESTROOM
--- NOTE | 2019-12-12 09:46 | NUR ---
Patient ambulated to bed 9. RN evaluating patient at bedside.
[2019-12-12] MEDS ORDERED: NACL 0.9% 1,000 ML IV ONE (10:15)
--- NOTE | 2019-12-12 10:35 | NUR ---
39YO F C/O RLQ ABDOMINAL PAIN X 1 DAY. PT STATES SUDDEN SHARP PAIN OF 10/10 WHILE SHE WAS AT WORK, WHICH RADIATED TO HER R SHOULDER AND ELBOW TODAY. DENIES ANY TRAUMA OR INJURY. DENIES N/V/D, URINARY PROBLEMS. BOWEL MOVEMENT NORMAL. VSS. PT'S ABDOMEN TENDER ON RLQ, BS ACTIVE ON ALL QUADS. PT IS RESTING COMFORTABLY IN BED WITH SIDERAILS UP. ER MD AWARE OF PT STATUS. ALLERGY: IBUPROFEN
--- NOTE | 2019-12-12 10:43 | NUR ---
US exam completed by tech at bedside.
[2019-12-12 11:03] LABS: BASOPHILS # (AUTO) 0.1 K/uL (0.00-0.22); BASOPHILS % (AUTO) 1.2 % (0.0-2.0); EOSINOPHILS # (AUTO) 0.1 K/uL (0-0.4); EOSINOPHILS % (AUTO) 1.6 % (0.0-4.0); HEMATOCRIT 31.8 % (36-48); HEMOGLOBIN 9.7 g/dL (12.0-16.0); LYMPHOCYTES % (AUTO) 24.3 % (20.5-51.1); MEAN CORPUSCULAR HEMOGLOBIN 23 pg (27-31); MEAN CORPUSCULAR HGB CONC 31 g/dL (33-37); MONOCYTES # (AUTO) 0.6 K/uL (0.8-1.0); MONOCYTES % (AUTO) 13.6 % (1.7-9.3); NEUTROPHILS # (AUTO) 2.5 K/uL (1.8-7.7); NEUTROPHILS % (AUTO) 59.3 % (42.2-75.2); PLATELET COUNT (AUTO) 187 K/uL (140-450); RED BLOOD CELL COUNT(AUTO) 4.19 MIL/uL (4.20-5.40); RED CELL DISTRIBUTION WIDTH 20.8 % (11.6-13.7); WHITE BLOOD COUNT (AUTO) 4.3 K/uL (4.8-10.8)
[2019-12-12 11:26] LABS: ALBUMIN 4.1 g/dL (3.4-5.0); ANION GAP 16.4 (8-16); CARBON DIOXIDE 27.2 mmol/L (21-32); CREATININE 0.5 mg/dL (0.6-1.3); POTASSIUM 3.6 mmol/L (3.5-5.1); TOTAL BILIRUBIN 0.4 mg/dL (0.0-1.0)
[2019-12-12] MEDS ORDERED: HYDROcodone/APAP 5/325 MG 1 TAB TAB PO ONE (12:00)
--- NOTE | 2019-12-12 12:15 | NUR ---
Dr. Jacobs is evaluating the patient at bedside.
--- NOTE | 2019-12-12 12:25 | NUR ---
APPLIED SHOULDER IMMOBILIZER TO RIGHT SHOULDER WITHOUT ANY ISSUES
[2019-12-12 12:31] VITALS: BP 140/94
--- NOTE | 2019-12-12 12:31 | NUR ---
Patient discharged with v/s stable. Written and verbal after care instructions given and explained. Patient alert, oriented and verbalized understanding of instructions. Ambulatory with steady gait. All questions addressed prior to discharge. ID band removed. Patient advised to follow up with PMD. Rx of LIBRIUM given. Patient educated on indication of medication including possible reaction and side effects. Opportunity to ask questions provided and answered.
== END 2019-12-12 12:31 | disposition home or self-care (01) ==
LOC: MED 09:39
DX: F10.10 Alcohol abuse, uncomplicated (principal); R10.9 Unspecified abdominal pain; M79.601 Pain in right arm; Z98.890 Other specified postprocedural states; Z79.899 Other long term (current) drug therapy; Z88.8 Allergy status to other drugs, medicaments and biological substances
CPT/HCPCS: 36415; 76705; 80053; 81002; 83690; 85025; 99284; J7030; Q0092

== ENCOUNTER 2019-12-26 18:30 | Emergency (ER) | payer MEDICAID ==
[~2019-12-26] VITALS: Ht 160 cm; Wt 63.0 kg
[2019-12-26 18:46] VITALS: BP 127/96
--- NOTE | 2019-12-26 18:53 | NUR ---
WAIT AT LOBBY HANDED ON URINE CUP
--- NOTE | 2019-12-26 20:21 | NUR ---
PT AMBULATED TO BED 08
--- NOTE | 2019-12-26 20:25 | NUR ---
DR JURADO EXAMINING PT IN ROOM
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
[2019-12-26] MEDS ORDERED: LORazepam 1 MG TAB PO ONE (20:35)
[2019-12-26] MEDS ORDERED: ACETAMINOPHEN EXTRA STRENGTH 500 MG TAB PO ONE (20:35)
[2019-12-26 21:11] VITALS: BP 115/78
--- NOTE | 2019-12-26 21:17 | NUR ---
Patient discharged with v/s stable. Written and verbal after care instructions given and explained. Patient alert, oriented and verbalized understanding of instructions. Ambulatory with steady gait. All questions addressed prior to discharge. ID band removed. Patient advised to follow up with PMD. Rx of LIBRIUM, BENADRYL given. Patient educated on indication of medication including possible reaction and side effects. Opportunity to ask questions provided and answered.
== END 2019-12-26 21:15 | disposition home or self-care (01) ==
LOC: MED 18:30
DX: R25.1 Tremor, unspecified (principal); Z79.899 Other long term (current) drug therapy; Z88.8 Allergy status to other drugs, medicaments and biological substances
CPT/HCPCS: 99283

== ENCOUNTER 2020-02-07 23:52 | Emergency (ER) | payer MEDICAID, SELFPAY ==
[~2020-02-07] VITALS: Ht 167.6 cm; Wt 59.0 kg
[2020-02-07 23:52] VITALS: BP 123/82
[2020-02-08] MEDS ORDERED: ACETAMINOPHEN EXTRA STRENGTH 500 MG TAB PO ONE (00:45)
[2020-02-08 01:38] LABS: BARBITURATE, URINE NEGATIVE ng/ml (NEG <=200); BENZODIAZEPINE, URINE NEGATIVE ng/mL (NEG <=200); CANNABINOID, URINE NEGATIVE ng/mL (NEG <=50); COCAINE, URINE NEGATIVE ng/mL (NEG <=300); OPIATE, URINE NEGATIVE ng/mL (NEG <=2000); PHENCYCLIDINE SCREEN,URINE NEGATIVE ng/mL (NEG <=25)
[2020-02-08 01:53] VITALS: BP 120/79
== END 2020-02-08 01:51 | disposition home or self-care (01) ==
LOC: MED 23:52 → EEVIPCON 23:52 → MED 02-08 01:51
DX: R51 Headache (principal); R06.02 Shortness of breath; Z88.8 Allergy status to other drugs, medicaments and biological substances; Z79.899 Other long term (current) drug therapy; Z98.890 Other specified postprocedural states
CPT/HCPCS: 80305; 99282; 99283

== ENCOUNTER 2020-05-20 16:19 | Emergency (ER) | payer MEDICAID, SELFPAY ==
[~2020-05-20] VITALS: Ht 160 cm; Wt 59.0 kg
[2020-05-20 16:23] VITALS: BP 133/82
--- NOTE | 2020-05-20 16:33 | NUR ---
GARFIELD ESCOBAR AT BEDSIDE.
[2020-05-20] MEDS ORDERED: HYDROcodone/APAP 5/325 MG 1 TAB TAB PO ONE (16:35)
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
--- NOTE | 2020-05-20 17:00 | NUR ---
XR AT BEDSIDE
[2020-05-20 17:46] VITALS: BP 121/78
--- NOTE | 2020-05-20 17:46 | NUR ---
Patient discharged with v/s stable. Written and verbal after care instructions given and explained. Patient alert, oriented and verbalized understanding of instructions. Ambulatory with steady gait. All questions addressed prior to discharge. ID band removed. Patient advised to follow up with PMD. Rx of Ibuprofen and Tylenol given. Patient educated on indication of medication including possible reaction and side effects. Opportunity to ask questions provided and answered.
== END 2020-05-20 17:46 | disposition home or self-care (01) ==
LOC: MED 16:19
DX: S90.32XA Contusion of left foot, initial encounter (principal); Z88.6 Allergy status to analgesic agent; X58.XXXA Exposure to other specified factors, initial encounter; Y93.89 Activity, other specified; Y92.89 Other specified places as the place of occurrence of the external cause; Y99.8 Other external cause status; Z79.899 Other long term (current) drug therapy
CPT/HCPCS: 73630; 99283; Q0092

== ENCOUNTER 2020-08-29 12:45 | Emergency (ER) | payer MEDICAID, SELFPAY ==
[~2020-08-29] VITALS: Ht 160 cm; Wt 61.2 kg
[2020-08-29 12:49] VITALS: BP 126/73
[2020-08-29] MEDS ORDERED: TOMOMETER 1 DEV DEV MC ONE (13:31)
[2020-08-29] MEDS: FLUORESCEIN OPTH STRIP 1 MG OP ONE (13:49)
[2020-08-29] MEDS: TETRACAINE HCL/PF 0.5% OPTH 4 ML BTL OP ONE (13:50)
[2020-08-29 14:10] VITALS: BP 123/85
== END 2020-08-29 14:10 | disposition home or self-care (01) ==
LOC: MED 12:45
DX: S05.02XA Injury of conjunctiva and corneal abrasion without foreign body, left eye, initial encounter (principal); B19.20 Unspecified viral hepatitis C without hepatic coma; D64.9 Anemia, unspecified; Z88.6 Allergy status to analgesic agent; Z79.899 Other long term (current) drug therapy; X58.XXXA Exposure to other specified factors, initial encounter; Y93.89 Activity, other specified; Y92.89 Other specified places as the place of occurrence of the external cause; Y99.8 Other external cause status
CPT/HCPCS: 99283

== ENCOUNTER 2021-02-04 13:50 | Emergency (ER) | payer MEDICAID ==
[~2021-02-04] VITALS: Ht 160 cm; Wt 59.0 kg
[2021-02-04 14:01] VITALS: BP 105/67
--- NOTE | 2021-02-04 14:24 | NUR ---
40 YEAR OLD FEMALE COMPLAINS OF GENERALIZED WEAKNESS FOR THE PAST MONTH. PT STATES SHE IS UNAWARE OF CAUSE, BUT HAS DECREASED APPETITE. PT DENIES N/V/D. PT AOX4, BREATHING EVEN AND UNLABORED, SKIN WARM AND DRY. BED IN LOWEST POSITION, LOCKED, BED RAIL UPX1. PMH - PANCREATITIS, TUBAL LIGATION, RIGHT LEG SURGERY ALLERGIES - NKA
[2021-02-04 14:49] LABS: BASOPHILS % (AUTO) 0.9 % (0.0-2.0); EOSINOPHILS # (AUTO) 0.2 K/uL (0-0.4); EOSINOPHILS % (AUTO) 5.5 % (0.0-4.0); HEMATOCRIT 38.2 % (36-48); HEMOGLOBIN 12.7 g/dL (12.0-16.0); LYMPHOCYTES # (AUTO) 0.8 K/uL (2.5-16.5); LYMPHOCYTES % (AUTO) 27.9 % (20.5-51.1); MEAN CORPUSCULAR HEMOGLOBIN 32 pg (27-31); MEAN CORPUSCULAR HGB CONC 33 g/dL (33-37); MEAN CORPUSCULAR VOLUME 97.9 fL (80-94); MONOCYTES # (AUTO) 0.5 K/uL (0.8-1.0); MONOCYTES % (AUTO) 18.8 % (1.7-9.3); NEUTROPHILS # (AUTO) 1.4 K/uL (1.8-7.7); NEUTROPHILS % (AUTO) 46.9 % (42.2-75.2); PLATELET COUNT (AUTO) 117 K/uL (140-450); RED BLOOD CELL COUNT(AUTO) 3.91 MIL/uL (4.20-5.40); RED CELL DISTRIBUTION WIDTH 15.1 % (11.6-13.7); WHITE BLOOD COUNT (AUTO) 2.9 K/uL (4.8-10.8)
[2021-02-04 15:09] LABS: ALBUMIN 4.1 g/dL (3.4-5.0); ANION GAP 11.3 (8-16); CARBON DIOXIDE 29.3 mmol/L (21-32); CREATININE 0.6 mg/dL (0.6-1.3); POTASSIUM 3.6 mmol/L (3.5-5.1); THYROID STIMULATING HORMONE 1.11 uIU/mL (0.34-3.74); TOTAL BILIRUBIN 0.8 mg/dL (0.0-1.0)
--- NOTE | 2021-02-04 15:30 | NUR ---
PT ALERT AND AWAKE, BREATHING EVEN AND UNLABORED.
[2021-02-04] MEDS ORDERED: LORA-476 PO (16:04)
--- NOTE | 2021-02-04 16:11 | NUR ---
Patient discharged with v/s stable. Written and verbal after care instructions given and explained. Patient alert, oriented and verbalized understanding of instructions. Ambulatory with steady gait. All questions addressed prior to discharge. ID band removed. Patient advised to follow up with PMD. Rx of Lorazepam given. Patient educated on indication of medication including possible reaction and side effects. Opportunity to ask questions provided and answered.
[2021-02-04 16:13] VITALS: BP 111/71
== END 2021-02-04 16:11 | disposition home or self-care (01) ==
LOC: MED 13:50
DX: R53.1 Weakness (principal); F10.129 Alcohol abuse with intoxication, unspecified; F17.210 Nicotine dependence, cigarettes, uncomplicated; Z79.899 Other long term (current) drug therapy; Y90.9 Presence of alcohol in blood, level not specified
CPT/HCPCS: 36415; 80053; 81002; 81025; 83690; 84443; 84484; 85025; 93005; 99284

== ENCOUNTER 2021-04-17 22:49 | Emergency (ER) | payer MEDICAID ==
[~2021-04-17] VITALS: Ht 162.6 cm; Wt 60.8 kg
[~2021-04-17 22:49] MED LIST changes: +LORA-476 PO
--- NOTE | 2021-04-17 22:56 | NUR ---
PT TAKEN TO BED 9
[2021-04-17 23:00] VITALS: BP 113/82
[2021-04-17 23:10] VITALS: BP 101/73
--- NOTE | 2021-04-17 23:28 | NUR ---
PT RETURN FROM CT
[2021-04-17] MEDS ORDERED: ACETAMINOPHEN EXTRA STRENGTH 500 MG TAB PO ONE (23:35)
[2021-04-18] MEDS ORDERED: NAPR-54 PO (00:12)
--- NOTE | 2021-04-18 00:19 | NUR ---
d/c with VSS. d/c education given. opportunity to ask questions given and answered. rx of naprosyn.
== END 2021-04-18 00:19 | disposition home or self-care (01) ==
LOC: MED 22:49
DX: S09.90XA Unspecified injury of head, initial encounter (principal); F17.210 Nicotine dependence, cigarettes, uncomplicated; D64.9 Anemia, unspecified; Z79.899 Other long term (current) drug therapy; W19.XXXA Unspecified fall, initial encounter; Y93.89 Activity, other specified; Y92.89 Other specified places as the place of occurrence of the external cause; Y99.8 Other external cause status
CPT/HCPCS: 70450; 99284

== ENCOUNTER 2021-05-15 00:33 | Emergency (ER) | payer MEDICAID ==
[~2021-05-15] VITALS: Ht 160 cm; Wt 56.7 kg
[~2021-05-15 00:33] MED LIST changes: +NAPR-54 PO
[2021-05-15 00:38] VITALS: BP 110/73
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
--- NOTE | 2021-05-15 02:44 | NUR ---
CALLED POISON CONTROL, SPOKE TO DEREK. SUGGESTED TREATMENT: SYMPTOM MANAGEMENT IF DIFFICULTY SWALLOWING, GI CONSULT.
[2021-05-15] MEDS ORDERED: MAG-27 PO (02:52)
[2021-05-15 03:00] VITALS: BP 110/73
--- NOTE | 2021-05-15 03:00 | NUR ---
Patient discharged with v/s stable. Written and verbal after care instructions given and explained. Patient verbalized understanding. Ambulatory with steady gait. All questions addressed prior to discharge. Advised to follow up with PMD.
== END 2021-05-15 03:00 | disposition home or self-care (01) ==
LOC: MED 00:33
DX: T54.1X1A Toxic effect of other corrosive organic compounds, accidental (unintentional), initial encounter (principal); R07.0 Pain in throat; Z79.899 Other long term (current) drug therapy; Y92.89 Other specified places as the place of occurrence of the external cause
CPT/HCPCS: 99282

== ENCOUNTER 2021-06-15 19:44 | Emergency (ER) | payer MEDICAID ==
[~2021-06-15] VITALS: Ht 160 cm; Wt 59.0 kg
[~2021-06-15 19:44] MED LIST changes: +MAG-27 PO
[2021-06-15 19:50] VITALS: BP 130/55
--- NOTE | 2021-06-15 19:50 | NUR ---
to bed ambulatory
[2021-06-15] MEDS ORDERED: IBUP-2213 PO (20:30)
[2021-06-15] MEDS ORDERED: KETOROLAC 60 MG/2 ML VIAL IM ONE (20:30)
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
[2021-06-15 21:32] VITALS: BP 130/55
== END 2021-06-15 21:32 | disposition home or self-care (01) ==
LOC: MED 19:44
DX: S51.812A Laceration without foreign body of left forearm, initial encounter (principal); F17.200 Nicotine dependence, unspecified, uncomplicated; Z79.899 Other long term (current) drug therapy; Z98.890 Other specified postprocedural states; W26.0XXA Contact with knife, initial encounter; Y93.89 Activity, other specified; Y92.89 Other specified places as the place of occurrence of the external cause; Y99.8 Other external cause status
CPT/HCPCS: 12001; 90471; 90715; 96372; 99284; J1885

== ENCOUNTER 2021-06-26 17:30 | Emergency (ER) | payer MEDICAID ==
[~2021-06-26] VITALS: Ht 160 cm; Wt 56.7 kg
[~2021-06-26 17:30] MED LIST changes: +IBUP-2213 PO
[2021-06-26 17:34] VITALS: BP 107/75
[2021-06-26] MEDS ORDERED: BACI1PAC6 TP (17:57)
--- NOTE | 2021-06-26 18:00 | NUR ---
GARFIELD ZAMORA DISCHARGED PATIENT IN ER LOBBY.
== END 2021-06-26 18:00 | disposition home or self-care (01) ==
LOC: MED 17:30
DX: S51.812D Laceration without foreign body of left forearm, subsequent encounter (principal); Z79.899 Other long term (current) drug therapy; X58.XXXD Exposure to other specified factors, subsequent encounter
CPT/HCPCS: 99281

== ENCOUNTER 2021-07-31 19:19 | Emergency (ER) | payer MEDICAID ==
[~2021-07-31] VITALS: Ht 160 cm; Wt 59.0 kg
[~2021-07-31 19:19] MED LIST changes: +BACI1PAC6 TP
[2021-07-31 20:23] VITALS: BP 113/92
--- NOTE | 2021-07-31 20:33 | NUR ---
AMBULATED TO BED 6 FROM TRIAGE
[2021-07-31] MEDS ORDERED: KETOROLAC 60 MG/2 ML VIAL IM ONE (20:40)
--- NOTE | 2021-07-31 20:58 | NUR ---
Pt taken to X-ray via wheelchair.
[2021-07-31] MEDS ORDERED: IBUP-2213 PO (22:06)
[2021-07-31] MEDS ORDERED: ACET-8386 PO (22:06)
[2021-07-31 22:20] VITALS: BP 113/92
--- NOTE | 2021-07-31 22:20 | NUR ---
Patient discharged with v/s stable. Written and verbal after care instructions given and explained. Patient alert, oriented and verbalized understanding of instructions. Ambulatory with steady gait. All questions addressed prior to discharge. ID band removed. Patient advised to follow up with PMD. Rx of hydrocodon-acetaminophen 5-325 and ibuprofen given. Patient educated on indication of medication including possible reaction and side effects. Opportunity to ask questions provided and answered.
== END 2021-07-31 22:20 | disposition home or self-care (01) ==
LOC: MED 19:19
DX: S20.20XA Contusion of thorax, unspecified, initial encounter (principal); D64.9 Anemia, unspecified; F17.200 Nicotine dependence, unspecified, uncomplicated; Z98.890 Other specified postprocedural states; Z79.899 Other long term (current) drug therapy; W19.XXXA Unspecified fall, initial encounter; Y93.89 Activity, other specified; Y92.89 Other specified places as the place of occurrence of the external cause; Y99.8 Other external cause status
CPT/HCPCS: 71101; 96372; 99283; J1885

== ENCOUNTER 2022-09-27 07:40 | Emergency (ER) | payer MEDICAID ==
[~2022-09-27] VITALS: Ht 160 cm; Wt 57.4 kg
[~2022-09-27 07:40] MED LIST changes: +ACET-8386 PO
[2022-09-27 07:41] VITALS: BP 105/76
--- NOTE | 2022-09-27 08:10 | NUR ---
PATIENT AMB TO BED 5.
--- NOTE | 2022-09-27 08:20 | NUR ---
42/F WALKED IN C/O 08/11 RIGHT SHOULDER / RIGHT UPPER ARM PAIN ONSET LAST NIGHT. DENIES FALL OR TRAUMA. AAO4, AMBULATORY. PMH: DENIES
[2022-09-27] MEDS ORDERED: KETOROLAC 30 MG/ML VIAL IM ONE (08:35)
[2022-09-27] MEDS ORDERED: NAPR-1704 PO (09:42)
== END 2022-09-27 09:50 | disposition home or self-care (01) ==
LOC: MED 07:40
DX: M62.830 Muscle spasm of back (principal); Z79.899 Other long term (current) drug therapy; Z79.891 Long term (current) use of opiate analgesic; Z79.1 Long term (current) use of non-steroidal anti-inflammatories (NSAID); Z79.2 Long term (current) use of antibiotics
CPT/HCPCS: 73030; 96372; 99283; J1885

== ENCOUNTER 2022-12-23 20:10 | Emergency (ER) | payer MEDICAID ==
[~2022-12-23] VITALS: Ht 160 cm; Wt 59.0 kg
[~2022-12-23 20:10] MED LIST changes: -ACET-8386 PO; +ACET-8905 PO; +BACI-416 TP; -BACI1PAC6 TP; +NAPR-1704 PO
--- NOTE | 2022-12-23 20:12 | NUR ---
FRAN ALS TO BED #8
--- NOTE | 2022-12-23 20:15 | NUR ---
pt BIBA for evaluation of seizure. 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 pt is currently looked drowsy, unable to talk. sezuire precaustion pad initiated.
[2022-12-23] MEDS ORDERED: LORazepam 2 MG/ML VIAL IVP ONE (20:20)
[2022-12-23] MEDS ORDERED: levETIRAcetam 1,000 MG in NACL 0.9% 100 ML IV ONE (20:20)
[2022-12-23] MEDS ORDERED: NACL 0.9% 1,000 ML IV ONE (20:20)
--- NOTE | 2022-12-23 20:41 | NUR ---
2L NC PLACED ON PT. 97% 2L
[2022-12-23 20:53] LABS: EOSINOPHILS # (AUTO) 0.2 K/uL (0-0.4); EOSINOPHILS % (AUTO) 3.9 % (0.0-4.0); HEMATOCRIT 35.2 % (36-48); HEMOGLOBIN 11.4 g/dL (12.0-16.0); LYMPHOCYTES # (AUTO) 2.1 K/uL (2.5-16.5); MEAN CORPUSCULAR HEMOGLOBIN 28 pg (27-31); MEAN CORPUSCULAR HGB CONC 32 g/dL (33-37); MEAN CORPUSCULAR VOLUME 85.8 fL (80-94); MONOCYTES # (AUTO) 0.5 K/uL (0.8-1.0); MONOCYTES % (AUTO) 11.1 % (1.7-9.3); NEUTROPHILS # (AUTO) 1.4 K/uL (1.8-7.7); PLATELET COUNT (AUTO) 121 K/uL (140-450); RED CELL DISTRIBUTION WIDTH 14.6 % (11.6-13.7); WHITE BLOOD COUNT (AUTO) 4.2 K/uL (4.8-10.8)
[2022-12-23 21:26] VITALS: BP 97/65
[2022-12-23 21:35] LABS: ANION GAP 14.4 (8-16); CARBON DIOXIDE 27.6 mmol/L (21-32); CREATININE 0.5 mg/dL (0.6-1.3)
[2022-12-23] MEDS ORDERED: levETIRAcetam 100 MG/ML VIAL IV ONE (21:43)
[2022-12-23 22:01] LABS: LIPASE 139 U/L (73-393); MAGNESIUM 2.1 mg/dL (1.8-2.4); PHOSPHORUS 4.3 mg/dL (2.5-4.9)
[2022-12-23 22:22] LABS: ACETAMINOPHEN < 0.5 ug/ml (10-30); SALICYLATE < 2.8 mg/dL (2.8-20.0)
--- NOTE | 2022-12-24 01:00 | NUR ---
pt is resting on the bed. no sign of distress noted.
--- NOTE | 2022-12-24 02:30 | NUR ---
ordered to have the pt is able to ambulate and she did ambulate with no problems. She didnt have falls noted.
[2022-12-24 03:28] VITALS: BP 100/65
--- NOTE | 2022-12-24 03:33 | NUR ---
Patient discharged with v/s stable. Written and verbal after care instructions given and explained. Patient verbalized understanding. Ambulatory with steady gait. All questions addressed prior to discharge. Advised to follow up with PMD. pt left with her belongings and picked up by her partner
--- NOTE | 2023-01-02 07:55 | NUR ---
LATE ENTRY -- CONFIRMED WITH NURSE, NS INFUSION END TIME IS 299 AND KEPPRA INFUSION ENDED 2049
== END 2022-12-24 03:28 | disposition home or self-care (01) ==
LOC: MED 20:10
DX: F10.231 Alcohol dependence with withdrawal delirium (principal); F10.221 Alcohol dependence with intoxication delirium; D72.819 Decreased white blood cell count, unspecified; D64.9 Anemia, unspecified; Z79.1 Long term (current) use of non-steroidal anti-inflammatories (NSAID); Z79.891 Long term (current) use of opiate analgesic; Z79.899 Other long term (current) drug therapy; Z79.2 Long term (current) use of antibiotics; Y90.8 Blood alcohol level of 240 mg/100 ml or more
CPT/HCPCS: 36415; 80048; 83605; 83690; 83735; 84100; 85025; 87040; 96365; 96375; 99284; G0480; G0482; J1953; J2060; J7030

== ENCOUNTER 2023-03-21 23:43 | Emergency (ER) | payer MEDICAID ==
[~2023-03-21] VITALS: Ht 160 cm; Wt 58.1 kg
[2023-03-21 23:56] VITALS: BP 123/80
--- NOTE | 2023-03-22 00:13 | NUR ---
Pt to bed 12 accompanied by sosa BYRNES
--- NOTE | 2023-03-22 00:27 | NUR ---
Patient being evaluated by physician at bedside.
[2023-03-22] MEDS ORDERED: KETOROLAC 60 MG/2 ML VIAL IM ONE (00:30)
[2023-03-22] MEDS ORDERED: IBUP-2213 PO (00:53)
[2023-03-22 01:03] VITALS: BP 123/80
--- NOTE | 2023-03-22 01:03 | NUR ---
Patient discharged with v/s stable. Written and verbal after care instructions given and explained. New rx ibuprofen. Patient verbalized understanding. Ambulatory with steady gait. Accompanied by family members. All questions addressed prior to discharge. Advised to follow up with PMD.
== END 2023-03-22 01:03 | disposition home or self-care (01) ==
LOC: MED 23:43
DX: S00.91XA Abrasion of unspecified part of head, initial encounter (principal); Z79.899 Other long term (current) drug therapy; Y04.0XXA Assault by unarmed brawl or fight, initial encounter; Y93.89 Activity, other specified; Y92.89 Other specified places as the place of occurrence of the external cause; Y99.8 Other external cause status
CPT/HCPCS: 96372; 99283; J1885

== ENCOUNTER 2023-06-22 21:47 | Emergency (ER) | payer MEDICAID ==
[~2023-06-22] VITALS: Ht 160 cm; Wt 56.7 kg
[~2023-06-22 21:47] MED LIST changes: -BACI-416 TP; +BACI-418 TP
[2023-06-22 22:32] VITALS: BP 115/75; PULSE 87; RESP 20; TEMP 98; O2SAT 98
[2023-06-22] MEDS ORDERED: ACETAMINOPHEN EXTRA STRENGTH 500 MG TAB PO ONE (23:05)
[2023-06-22] MEDS ORDERED: ACET-9800 PO (23:36)
[2023-06-22] MEDS ORDERED: IBUP-2213 PO (23:36)
== END 2023-06-23 00:02 | disposition home or self-care (01) ==
LOC: MED 21:47
DX: S06.0X0A Concussion without loss of consciousness, initial encounter (principal); Z88.5 Allergy status to narcotic agent; Z79.899 Other long term (current) drug therapy; Y04.0XXA Assault by unarmed brawl or fight, initial encounter; Y93.89 Activity, other specified; Y92.89 Other specified places as the place of occurrence of the external cause; Y99.8 Other external cause status
CPT/HCPCS: 99283

== ENCOUNTER 2023-08-04 18:56 | Emergency (ER) | payer MEDICAID ==
[~2023-08-04] VITALS: Ht 160 cm; Wt 56.7 kg
[~2023-08-04 18:56] MED LIST changes: +ACET-9800 PO
[2023-08-04 19:14] VITALS: BP 108/81; PULSE 92; RESP 20; TEMP 97.8; O2SAT 97
[2023-08-04] MEDS ORDERED: DICL100G32 TP (20:46)
[2023-08-04] MEDS ORDERED: IBUP-1842 PO (20:46)
[2023-08-04] MEDS ORDERED: ACET-9882 PO (20:46)
[2023-08-04] MEDS ORDERED: CYCL-711 PO (20:46)
[2023-08-04 21:10] VITALS: BP 108/81; PULSE 92; RESP 20; TEMP 97.8; O2SAT 97
== END 2023-08-04 21:10 | disposition home or self-care (01) ==
LOC: MED 18:56
DX: S46.812A Strain of other muscles, fascia and tendons at shoulder and upper arm level, left arm, initial encounter (principal); S13.4XXA Sprain of ligaments of cervical spine, initial encounter; Z79.899 Other long term (current) drug therapy; Z79.1 Long term (current) use of non-steroidal anti-inflammatories (NSAID); Z79.2 Long term (current) use of antibiotics; Z88.6 Allergy status to analgesic agent; V89.2XXA Person injured in unspecified motor-vehicle accident, traffic, initial encounter; Y93.89 Activity, other specified; Y92.410 Unspecified street and highway as the place of occurrence of the external cause; Y99.8 Other external cause status
CPT/HCPCS: 99283

== ENCOUNTER 2023-10-29 21:42 | Emergency (ER) | payer MEDICAID ==
[~2023-10-29] VITALS: Ht 160 cm; Wt 56.7 kg
[~2023-10-29 21:42] MED LIST changes: +ACET-9882 PO; +CYCL-711 PO; +DICL100G32 TP; +IBUP-1842 PO
[2023-10-29 21:45] VITALS: BP 135/91; PULSE 82; RESP 17; TEMP 98.1; O2SAT 98
[2023-10-30] MEDS ORDERED: ACETAMINOPHEN EXTRA STRENGTH 500 MG TAB PO ONE (00:05)
[2023-10-30 02:00] VITALS: BP 135/91; PULSE 82; RESP 17; TEMP 98.1; O2SAT 98
== END 2023-10-30 02:00 | disposition home or self-care (01) ==
LOC: MED 21:42
DX: S09.90XA Unspecified injury of head, initial encounter (principal); W01.198A Fall on same level from slipping, tripping and stumbling with subsequent striking against other object, initial encounter; Y93.89 Activity, other specified; Y92.89 Other specified places as the place of occurrence of the external cause; Y99.8 Other external cause status
CPT/HCPCS: 70450; 99284

== ENCOUNTER 2023-12-02 18:35 | Observation (INO) | payer MEDICAID, OTHER ==
[~2023-12-02] VITALS: Ht 157.5 cm; Wt 57.8 kg
[2023-12-02 19:17] VITALS: BP 125/71; PULSE 82; RESP 17; TEMP 97.6; O2SAT 98
[2023-12-02 20:12] LABS: BASOPHILS # (AUTO) 0.1 K/uL (0.00-0.22); BASOPHILS % (AUTO) 1.3 % (0.0-2.0); EOSINOPHILS # (AUTO) 0.2 K/uL (0-0.4); EOSINOPHILS % (AUTO) 4.2 % (0.0-4.0); HEMATOCRIT 39.6 % (36-48); HEMOGLOBIN 13.4 g/dL (12.0-16.0); LYMPHOCYTES # (AUTO) 2.3 K/uL (2.5-16.5); LYMPHOCYTES % (AUTO) 48.3 % (20.5-51.1); MEAN CORPUSCULAR HEMOGLOBIN 32 pg (27-31); MEAN CORPUSCULAR HGB CONC 34 g/dL (33-37); MEAN CORPUSCULAR VOLUME 93.7 fL (80-94); MONOCYTES # (AUTO) 0.4 K/uL (0.8-1.0); MONOCYTES % (AUTO) 9.2 % (1.7-9.3); NEUTROPHILS # (AUTO) 1.7 K/uL (1.8-7.7); PLATELET COUNT (AUTO) 148 K/uL (140-450); RED BLOOD CELL COUNT(AUTO) 4.23 MIL/uL (4.20-5.40); RED CELL DISTRIBUTION WIDTH 14.3 % (11.6-13.7); WHITE BLOOD COUNT (AUTO) 4.7 K/uL (4.8-10.8)
[2023-12-02 20:15] LABS: APPEARANCE,URINE CLEAR (CLEAR); BILIRUBIN,URINE NEGATIVE (NEGATIVE); BLOOD, URINE NEGATIVE (NEGATIVE); COLOR,URINE YELLOW (YELLOW); LEUKOCYTE ESTERASE ,URINE NEGATIVE (NEGATIVE); NITRITE, URINE NEGATIVE (NEGATIVE); PROTEIN,URINE NEGATIVE (NEGATIVE); UGLUCOSE NEGATIVE (NEGATIVE); UROBILINOGEN,URINE 0.2 EU/dL (0.2 - 1)
[2023-12-02 20:29] LABS: ANION GAP 17.5 (8-16); CALCIUM 9.1 mg/dL (8.5-10.1); CARBON DIOXIDE 26.6 mmol/L (21-32); CREATININE 0.6 mg/dL (0.6-1.3); POTASSIUM 4.1 mmol/L (3.5-5.1)
[2023-12-02 20:34] LABS: INR 1.05 (0.8-1.2); PARTIAL THROMBOPLASTIN TIME 27.3 secs (22-35.6)
[2023-12-02] MEDS ORDERED: METOCLOPRAMIDE 10 MG/2 ML INJ VIAL IVP ONE (20:40)
[2023-12-02] MEDS ORDERED: KETOROLAC 30 MG/ML VIAL IVP ONE (20:40)
[2023-12-02] MEDS ORDERED: HYDROcodone/APAP 5/325 MG 1 TAB TAB PO PRN (22:35)
[2023-12-02] MEDS ORDERED: KCL 20 MEQ IN 100 mL PREMIX 200 ML IV PRN (22:35)
[2023-12-02] MEDS ORDERED: MAG SULF 2000 MG/WATER PREMIX 50 ML IV PRN (22:35)
[2023-12-02] MEDS ORDERED: LORazepam 1 MG TAB PO PRN (22:35)
[2023-12-02] MEDS ORDERED: ONDANSETRON 4 MG/2 ML VIAL IVP PRN (22:35)
[2023-12-02] MEDS ORDERED: ACETAMINOPHEN 325 MG TAB PO PRN (22:35)
[2023-12-02] MEDS ORDERED: ZOLPIDEM 5 MG TAB PO PRN (22:35)
[2023-12-02] MEDS ORDERED: POTASSIUM CHLORIDE 10 MEQ TABER PO PRN (22:35)
[2023-12-02] MEDS ORDERED: MAGNESIUM OXIDE 400 MG TAB PO PRN (22:35)
[2023-12-03 07:21] LABS: BASOPHILS % (AUTO) 0.9 % (0.0-2.0); EOSINOPHILS # (AUTO) 0.2 K/uL (0-0.4); EOSINOPHILS % (AUTO) 3.9 % (0.0-4.0); HEMATOCRIT 39.1 % (36-48); HEMOGLOBIN 13.3 g/dL (12.0-16.0); LYMPHOCYTES # (AUTO) 1.5 K/uL (2.5-16.5); LYMPHOCYTES % (AUTO) 29.8 % (20.5-51.1); MEAN CORPUSCULAR HEMOGLOBIN 32 pg (27-31); MEAN CORPUSCULAR HGB CONC 34 g/dL (33-37); MEAN CORPUSCULAR VOLUME 94.1 fL (80-94); MONOCYTES # (AUTO) 0.6 K/uL (0.8-1.0); MONOCYTES % (AUTO) 11.6 % (1.7-9.3); NEUTROPHILS # (AUTO) 2.7 K/uL (1.8-7.7); NEUTROPHILS % (AUTO) 53.8 % (42.2-75.2); PLATELET COUNT (AUTO) 133 K/uL (140-450); RED BLOOD CELL COUNT(AUTO) 4.15 MIL/uL (4.20-5.40); RED CELL DISTRIBUTION WIDTH 14.5 % (11.6-13.7)
[2023-12-03 07:51] LABS: ANION GAP 15.1 (8-16); CALCIUM 8.5 mg/dL (8.5-10.1); CARBON DIOXIDE 27.6 mmol/L (21-32); CREATININE 0.6 mg/dL (0.6-1.3); MAGNESIUM 2.2 mg/dL (1.8-2.4); POTASSIUM 3.7 mmol/L (3.5-5.1); TOTAL BILIRUBIN 0.5 mg/dL (0.0-1.0); TOTAL PROTEIN, SERUM 9.3 g/dL (6.4-8.2)
[2023-12-03 08:03] VITALS: BP 112/60; PULSE 70; RESP 18; TEMP 98; O2SAT 99
[2023-12-03 08:05] VITALS: PULSE 68
[2023-12-03] MEDS ORDERED: ASPIRIN 81 MG TAB.CHEW PO SCH (09:00)
[2023-12-03] MEDS ORDERED: ENOXAPARIN 40 MG/0.4 ML SYR SUBQ SCH (09:00)
[2023-12-03] MEDS ORDERED: DOCUSATE SODIUM 100 MG GELCAP PO SCH (09:00)
[2023-12-03 09:03] LABS: CHOL/HDL RATIO 1.9 (1-4.5)
[2023-12-03 12:00] VITALS: BP 110/65; PULSE 68; RESP 18; TEMP 98.3; O2SAT 98
[2023-12-03 12:04] VITALS: PULSE 68
[2023-12-03 15:55] VITALS: PULSE 80
[2023-12-03 18:12] VITALS: BP 114/67; PULSE 70; RESP 18; TEMP 98.2
[2023-12-03] MEDS ORDERED: ATORVASTATIN 20 MG TAB PO SCH (21:00)
== END 2023-12-03 19:00 | disposition home or self-care (01) ==
LOC: MED 18:35 → MTU 22:34
PROVIDERS: ADMIT Internal Medicine; ATTEND Internal Medicine
DX: R20.0 Anesthesia of skin (principal); R29.810 Facial weakness; R47.1 Dysarthria and anarthria; Z79.899 Other long term (current) drug therapy
CPT/HCPCS: 36415; 70450; 70496; 70498; 71045; 80048; 80053; 80061; 81003; 83036; 83735; 84484; 85025; 85610; 85730; 86886; 86900; 86901; 87081; 93005; 93307; 96372; 96374; 99291; C8929; G0378; J1650; J1885; J2765; Q9967

== ENCOUNTER 2024-05-13 19:44 | Emergency (ER) | payer OTHER ==
[~2024-05-13] VITALS: Ht 160 cm; Wt 56.7 kg
[2024-05-13 20:35] VITALS: BP 120/94; RESP 16; TEMP 97.4; O2SAT 98
[2024-05-13] MEDS: LIDOCAINE 5% 1 EA PATCH TP ONE (22:15)
[2024-05-13] MEDS: ACETAMINOPHEN 325 MG TAB PO ONE (22:15)
[2024-05-13 22:18] VITALS: BP 120/94; PULSE 82; RESP 16; TEMP 97.4; O2SAT 98
== END 2024-05-13 22:18 | disposition home or self-care (01) ==
LOC: MED 19:44
DX: S16.1XXA Strain of muscle, fascia and tendon at neck level, initial encounter (principal); M25.512 Pain in left shoulder; Z88.6 Allergy status to analgesic agent; V89.2XXA Person injured in unspecified motor-vehicle accident, traffic, initial encounter; Y93.89 Activity, other specified; Y92.410 Unspecified street and highway as the place of occurrence of the external cause; Y99.8 Other external cause status
CPT/HCPCS: 99282

== ENCOUNTER 2024-07-10 20:11 | Emergency (ER) | payer MEDICAID, OTHER ==
[~2024-07-10] VITALS: Ht 165.1 cm; Wt 52.2 kg
[2024-07-10 20:17] VITALS: BP 127/84; PULSE 98; RESP 14; TEMP 98.2; O2SAT 96
[2024-07-10 20:20] VITALS: O2SAT 98
[2024-07-10 21:07] LABS: BASOPHILS % (AUTO) 0.6 % (0.0-2.0); HEMATOCRIT 38.6 % (36-48); HEMOGLOBIN 12.7 g/dL (12.0-16.0); LYMPHOCYTES % (AUTO) 43.3 % (20.5-51.1); MEAN CORPUSCULAR HEMOGLOBIN 30 pg (27-31); MEAN CORPUSCULAR HGB CONC 33 g/dL (33-37); MEAN CORPUSCULAR VOLUME 91.7 fL (80-94); MONOCYTES # (AUTO) 0.4 K/uL (0.8-1.0); MONOCYTES % (AUTO) 8.2 % (1.7-9.3); NEUTROPHILS # (AUTO) 2.2 K/uL (1.8-7.7); NEUTROPHILS % (AUTO) 46.9 % (42.2-75.2); PLATELET COUNT (AUTO) 144 K/uL (140-450); RED BLOOD CELL COUNT(AUTO) 4.21 MIL/uL (4.20-5.40); RED CELL DISTRIBUTION WIDTH 15.1 % (11.6-13.7); WHITE BLOOD COUNT (AUTO) 4.6 K/uL (4.8-10.8)
[2024-07-10 21:18] LABS: ANION GAP 15.2 (8-16); CALCIUM 8.5 mg/dL (8.5-10.1); CARBON DIOXIDE 26.7 mmol/L (21-32); CREATININE 0.6 mg/dL (0.6-1.3); POTASSIUM 3.9 mmol/L (3.5-5.1)
[2024-07-10 21:22] LABS: ALBUMIN 4.4 g/dL (3.4-5.0); BILIRUBIN,DIRECT 0.2 mg/dL (0.0-0.3); TOTAL BILIRUBIN 0.4 mg/dL (0.0-1.0); TOTAL PROTEIN, SERUM 8.3 g/dL (6.4-8.2)
[2024-07-10] MEDS ORDERED: levETIRAcetam 100 MG/ML VIAL IV ONE (21:27)
[2024-07-10] MEDS: levETIRAcetam 1,000 MG in NACL 0.9% 100 ML IV ONE (21:37)
[2024-07-10 21:49] LABS: APPEARANCE,URINE CLEAR (CLEAR); BILIRUBIN,URINE NEGATIVE (NEGATIVE); BLOOD, URINE NEGATIVE (NEGATIVE); COLOR,URINE YELLOW (YELLOW); LEUKOCYTE ESTERASE ,URINE NEGATIVE (NEGATIVE); NITRITE, URINE NEGATIVE (NEGATIVE); PROTEIN,URINE NEGATIVE (NEGATIVE); UGLUCOSE NEGATIVE (NEGATIVE); UROBILINOGEN,URINE 0.2 EU/dL (0.2 - 1)
[2024-07-10 22:09] LABS: AMPHETAMINE, URINE NEGATIVE ng/ml (NEG <=1000); BARBITURATE, URINE NEGATIVE ng/ml (NEG <=200); BENZODIAZEPINE, URINE NEGATIVE ng/mL (NEG <=200); CANNABINOID, URINE POSITIVE ng/mL (NEG <=50); COCAINE, URINE NEGATIVE ng/mL (NEG <=300); OPIATE, URINE NEGATIVE ng/mL (NEG <=2000); PHENCYCLIDINE SCREEN,URINE NEGATIVE ng/mL (NEG <=25)
[2024-07-11] MEDS: NACL 0.9% 1,000 ML IV ONE (03:15)
[2024-07-11] MEDS ORDERED: KEP500 PO (04:32)
[2024-07-11 05:50] VITALS: BP 98/68; PULSE 55; RESP 13; TEMP 98.2; O2SAT 99
== END 2024-07-11 05:50 | disposition home or self-care (01) ==
LOC: MED 20:11
DX: F10.229 Alcohol dependence with intoxication, unspecified (principal); Z79.899 Other long term (current) drug therapy; Z91.040 Latex allergy status; Y90.8 Blood alcohol level of 240 mg/100 ml or more
CPT/HCPCS: 36415; 70450; 80048; 80076; 80305; 81003; 83690; 84703; 85025; 96361; 96365; 99285; G0482; J1953; J7030